=== PATIENT | female | born 1945 | race Caucasian/White ===

== ENCOUNTER 2021-10-28 16:44 | Outpatient (CLI) | payer MEDICARE, BC, SELFPAY ==
[2021-10-28 10:18] LABS: Chloride* 101 mmol/L (96-114); Potassium* 4.6 mmol/L (3.6-5.1); Sodium* 136 mmol/L (135-149)
[2021-10-28 10:20] LABS: Cholesterol* 191 mg/dL (90-199); Creatinine* 1.1 mg/dL (0.5-1.5); Estimated Glomerular Filt Rate 53 ml/min
[2021-10-28 10:21] LABS: Alanine Aminotransferase* 25 U/L (4-35); Alkaline Phosphatase* 49 U/L (40-150); Aspartate Amino Transferase* 32 U/L (12-35); Bilirubin Total* 0.7 mg/dL (0.1-1.5); Blood Urea Nitrogen* 21 mg/dL (7-30); Calcium* 9.1 mg/dL (8.4-10.6); Carbon Dioxide* 30 mmol/L (20-32); Glucose* 97 mg/dL (60-115); Total Protein* 6.7 g/dL (6.0-8.3); Triglycerides* 127 mg/dL (40-149)
[2021-10-28 10:22] LABS: HDL Cholesterol* 53 mg/dL (>=50); LDL Cholesterol Calculated 113 mg/dL (<100)
== END 2021-10-28 16:45 | disposition home or self-care (01) ==
PROVIDERS: PCP Family Medicine; Visit Provider Family Medicine
DX: E78.5 Hyperlipidemia, unspecified (principal)
CPT/HCPCS: 80053; 80061

== ENCOUNTER 2022-01-19 09:28 | Outpatient (CLI) | payer MEDICARE, BC, SELFPAY ==
--- OUTSIDE RECORDS SUMMARY | 2022-01-19 09:43 | XMS_ITS | Encounter Summary ---
:1945 Author Organization [employer] Address [address] [address] Care Team Providers Name Role Phone Unavailable Primary Care Provider Unavailable Reason for Referral Procedure/Equipment (Routine) - Closed Specialty Diagnoses / Procedures Referred By Contact Refer red To Contact Diagnoses Pleural thickening Pulmonary fibrosis (HRC) Mariam Butt MD Procedures CT Chest WO IV Cont [address] [place], [place] [address] Referral ID Status Reason Start Date Expiration Date Visits Requ ested Visits Authorized [id number] Closed 09/01/2021 12/11/2022 1 1 PUNCHER Reason for Visit Reason Comments Pulmonary Encounter Details Date Type Department Care Team Description 04/14/2021 Office Visit [facility] Mariam Butt, Pleural thickening (Primary Dx); [id number] [employer] Pulmonary fibrosis (HRC) [place] [address] [address] [facility] [phone] [place] [address] (Wo rk) Social History Tobacco Use Types Packs/Day Years Used Date Smoking Tobacco: Never Smokeless Tobacco: Never Alcohol Use Standard Drinks/Week Comments Not Currently 0 (1 standard drink = 0.6 oz pure alcoho l) Sex Assigned at Date Recorded Not on file documented as of this encounter Last Filed Vital Signs Vital Sign Reading Time Taken Comments Blood Pressure - - Pulse 70 04/14/2021 3:28 PM BELT PUNCHER Temperature - - Respiratory Rate - - Oxygen Saturation 94% 04/14/2021 3:28 PM BELT PUNCHER Inhaled Oxygen Concentration - - Weight 66 kg (145 lb 8 oz) 04/14/2021 3:28 PM BELT PUNCHER Height 160 cm (5' 3) 04/14/2021 3:28 PM BELT PUNCHER Body Mass Index 25.77 04/14/2021 3:28 PM BELT PUNCHER documented in this encounter Progress Notes Mariam Butt MD - 04/14/2021 3:30 PM CST Ingrid Osorio is a 75 y.o. female here today for follow up of bilateral apical reticulonodular opacities with superimposed consolidation SUBJECTIVE: I last met with Ms. Osorio one month ago where we discussed that her apical changes are atypical, and we elected to repeat a CT with follow up this month, as it would be 3 months from the original CT. Repeat CT today demonstrates essentially no change in the bilateral apical pleural thickening and peripheral infiltrate. She also brought in her MRI images which initially demonstrated these findings. These are similar as well. She remains asymptomatic, and her cough has resolved in the interim. OBJECTIVE: There were no vitals filed for this visit. General: Alert, oriented x 3, NAD Lungs: ctab Cardiac: RRR, without MRG appreciated Abd: soft, nt, nd. Normoactive bowel sounds. No appreciable organomegaly Ext: without cyanosis, clubbing, or edema Mental: answering questions appropriately RESULTS: I have personally reviewed the CT chest results. Results as above. ASSESSMENT: 1) Bilateral apical reticulonodular opacities and pleural thickening, probably ILD 2) Significant down exposure I had the pleasure of meeting with Mrs. Osorio in clinic again today. Repeat CT demonstrates no significant change in her pulmonary abnormalities. At this point I think it is reasonable to consider this as a manifestation of ILD and further workup is indicated. We will do a rheumatologic and autoimmune panel, as well as a hypersensitivity pneumonitis panel. Given the apical nature of these, I have also ordered quantiferon. We may need to remove the down from her home. There is one nodule that has grown from 5mm to 7mm in the 3 month span. This is likely inflammatory in nature. We will repeat a CT in 3-6 months with follow up at that time. If symptoms worsen, or if labs demonstrate significant abnormality we can see her back sooner. PLAN: 1) ILD labs 2) Follow up with repeat CT in 3-6 months Total time: 30 minutes; Counseling time: 20 minutes Mariam Butt MD 04/14/2021 Mariam Butt MD Pulmonary Medicine [phone] This office note has been dictated. PUNCHER documented in this encounter Plan of Treatment Upcoming Encounters Date Type Specialty Care Team Description 03/26/2022 Appointment Radiology PN Mariam Butt MD [address] [address] (Wo rk) 03/26/2022 Appointment Pulmonary 03/26/2022 Appointment Pulmonary Mariam Butt MD [address] [address] (Wo rk) documented as of this encounter Results CT Chest WO IV Cont (09/01/2021 12:28 PM CDT) Anatomical Region Laterality Modality Chest, Lung Computed Tomography Specimen (Source) Anatomical Collection Method Collection Time Re ceived Time Location / / Volume Laterality 09/01/2021 12:25 PM CDT Impressions 09/01/2021 1:30 PM CDT COMPARISON: CT 04/14/2021, 01/06/2021 TECHNIQUE: Noncontrast images were obtai saurabh through the chest. FINDINGS: Bones: Degenerative changes in the spine . Chronic mild T5 and T10 superior endplate compression fractures and a moderate compression fracture of the T8 vertebral body. Upper abdomen: Limited evaluation is unr emarkable. CHEST: Unremarkable esophagus. Partially visualized thyroid. No bulky chest lymphadenopathy. Heart and great vessels are normal in size. Trace right anterior pericardial fluid. No significant coronary artery calcifications. Patent central airways. No pneumothorax, pleural effusion, or new consolidation. Stable interstitial lung disease without an apical basal gradient. Stable small areas of peripheral consolidation in the posterior upper lobes and superior right lower lobe. No traction bronchiectasis or honeycombing. Stable 5 mm solid right lower lobe pulmonary nodule (series 3 image 38) and 2 mm solid right lower lobe p ulmonary nodule (series 3 image 45). Sta ble 8 x 5 mm probable lymph node along the right major fissure (coronal image 28). No new suspicious pulmonary nodule. IMPRESSION: 1. Interstitial lung disease in a patter n indeterminate for UIP has not significantly changed from 01/06/2021. 2. Stable 5 mm solid right lower lobe pu lmonary nodule and 2 mm solid right lower lobe pulmonary nodule. Procedure Note Hayder Lr MD - 09/01/2021Formatti ng of this note might be different from the original. IMPRESSION COMPARISON: CT 04/14/2021, 01/06/2021 TECHNIQUE: Noncontrast images were obtai saurabh through the chest. FINDINGS: Bones: Degenerative changes in the spine . Chronic mild T5 and T10 superior endplate compression fractures and a moderate compression fracture of the T8 vertebral body. Upper abdomen: Limited evaluation is unr emarkable. CHEST: Unremarkable esophagus. Partially visualized thyroid. No bulky chest lymphadenopathy. Heart and great vessels are normal in size. Trace right anterior pericardial fluid. No significant coronary artery calcifications. Patent central airways. No pneumothorax, pleural effusion, or new consolidation. Stable interstitial lung disease without an apical basal gradient. Stable small areas of peripheral consolidation in the posterior upper lobes and superior right lower lob e. No traction bronchiectasis or honeycombing. Stable 5 mm solid right lower lobe pulmonary nodule (series 3 image 38) and 2 mm solid right lower lobe pulmonary nodule (series 3 image 45). Stable 8 x 5 mm probable lymp h node along the right major fissure (coronal image 28). No new suspicious pulmonary nodule. IMPRESSION: 1. Interstitial lung disease in a patter n indeterminate for UIP has not significantly changed from 01/06/2021. 2. Stable 5 mm solid right lower lobe pu lmonary nodule and 2 mm solid right lower lobe pulmonary nodule. Mariam Butt MD RAD CT MPO/WI-3 (ANCA) Antibodies (04/14/2021 4:29 PM BELT PUNCHER) [facility] Time Signature Myeloperoxidase <0.3 <3.5 U/ml 04/16/2021 [facility] Antibody Units 11:08 AM [facility]AL [facility] BELT PUNCHER Myeloperoxidase Negative Negative 04/16/2021 [facility] Antibody 11:08 AM [facility] Interpretation BELT PUNCHER Proteinase 3 <0.7 <2.0 U/ml 04/16/2021 [facility] Antibody Units 11:08 AM [facility]TRAL [facility] BELT PUNCHER Proteinase 3 Negative Negative 04/16/2021 [facility] Interpretation 11:08 AM [facility]ENTRAL LAB BELT PUNCHER Specimen Anatomical Collection Method / Collection Time Recei madelin Time (Source) Location / Volume Laterality Blood Venipuncture / 04/14/2021 4:29 04/14/2021 4:30 Unknown PM BELT PUNCHER PM BELT PUNCHER Mariam Butt MD LAB_1 Performing Organization Address City/State/ZIP Code Phon e Number [facility] [address] [place] [phone] Hypersensitivity Pneumonitis (04/14/2021 4:29 PM BELT PUNCHER) [facility] Method Time Signature A Fumigatus #1 None None 04/19/2021 [facility] Detected Detected 8:53 PM [facility] Comment: Performed By: [facility] [address] [place] [address] A Fumigatus #6 None Detected None Detected 04/19/2021 8:53 A [facility] Precipitin PM BELT PUNCHER Comment: Performed By: [facility] [address] [place] [address] A Pullulans None Detected None Detected 04/19/2021 8:53 [facility] Precipitin PM BELT PUNCHER Comment: Performed By: [facility] [address] [place] [address] M Faeni Precipitin None Detected None Detected 04/19/2021 8:53 [facility] PM BELT PUNCHER Comment: Performed By: [facility] [address] [place] [address] [place] Serum None Detected None Detected 04/19/2021 8:53 [facility] Precipitin PM BELT PUNCHER Comment: Performed By: [facility] [address] [place] [address] T Vulgaris #1 See Note None Detected 04/19/2021 8:53 PM [facility] Precipitin BELT PUNCHER Comment: Testing includes antibodies directed at Aureobasidium pullulans, Aspergillus fumigatus #1, Aspergillus fu migatus #6, Micropolyspora faeni, [place] Serum and Thermoactinomyce s vulgaris #1. Thermoactinomyces vulgaris #1 testing no t performed due to unsatisfactory reagent performance. A cr edit will be issued for this component. Performed By: [email or web address] [address] [place] [address] Specimen Anatomical Collection Method / Collection Time Recei madelin Time (Source) Location / Volume Laterality Blood Venipuncture / 04/14/2021 4:29 04/14/2021 4:30 Unknown PM BELT PUNCHER PM BELT PUNCHER Mariam Butt MD LAB_1 Performing Organization Address City/State/ZIP Code Phon e Number [facility] [address] [place] [phone] Systemic Sclerosis Panel (04/14/2021 4:29 PM BELT PUNCHER) Analysis Performed At [facility] Time Signature RNA Polymerase 4 0 - 19 04/17/2021 [facility] III Antibody, Units 5:26 AM [facility] IgG Comment: INTERPRETIVE INFORMATION: RNA Polymerase III Antibody, IgG ??19 Units or less ......Negative ??20 - 39 Units .........Weak Positive ??40 - 80 Units .........Moderate Posit tali ??81 Units or greater ...Strong Positiv e The presence of RNA polymerase III IgG a ntibody, when considered in conjunction with other laboratory and clinical findings, is an aid in the diagnosis of systemic scleros is (SSc) with increased incidence of skin involvement and renal crisis with the diffuse cutaneous form of SSc. RNA polymerase II I IgG antibody occur in about 11-23 percent of SSc patients, and typically in the absence of anti-centromere and anti-Scl-70 antib odies. A negative result indicates no detectabl e IgG antibodies to the dominant antigen of RNA polymerase III a nd does not rule out the possibility of SSc. False-positive resul ts may also occur due to non-specific binding of immune complexes . Strong clinical correlation is recommended. If clinical suspicion remains, consider additional testing for other antibodies associated with SSc, in cluding centromere, Scl-70, U3-ANODE MACHINE OPERATOR, PM/Scl, or Th/To. Performed By: [facility] [address] [place] [address] Stock Preparation Operator: Sharon Gomez MD Scleroderma (Scl-70) Ab 1 0 - 40 AU/mL 04/17/2021 5:26 AM BELT PUNCHER [facility] Comment: INTERPRETIVE INFORMATION: Scleroderma (S cl-70) (TONY) Ab, IgG ??29 AU/mL or Less ............. Negati ve ??30 - 40 AU/mL ................ Equivo michael ??41 AU/mL or Greater .......... Positi ve The presence of Scl-70 antibodies (also referred to as topoisomerase I, miranda-I or DAVID) is consi dered diagnostic for systemic sclerosis (SSc). Scl-70 antibod ies alone are detected in about 20 percent of SSc patients and are associated with the diffuse form of the disease, which may i nclude specific organ involvement and poor prognosis. Scl-70 a ntibodies have also been reported in a varying percentage of margret ents with systemic lupus erythematosus (SLE). Scl-70 (miranda-1) is a DNA binding protein and anti-DNA/DNA complexes in the sera of SL E patients may bind to miranda-I, leading to a false-positive resu lt. The presence of Scl-70 antibody in sera may also be due to cont amination of recombinant Scl-70 with DNA derived from cellular ma terial used in immunoassays. Strong clinical correlatio n is recommended if both Scl-70 and dsDNA antibodies are detected . Negative results do not necessarily rule out the presence of SSc. If clinical suspicion remains, consider further testing for centromere, RNA polymerase III and U3-RN P, PM/Scl, or Th/To antibodies. Antinuclear Antibody <1:80 <1:80 04/17/2021 5:26 AM BELT PUNCHER [facility] (BEAU), HEp-2, IgG [facility] Interpretive Comment See Note 04/17/2021 5:26 AM BELT PUNCHER [facility] Comment: Antinuclear antibodies by IFA negative f or homogeneous, speckled, nucleolar, centromere, and nuclear dots patterns. Cytoplasmic antibodies by IFA negative f or reticular/AMA, discrete/GW body-like, polar/golgi-like, rods and rings, and cytoplasmic speckled patterns. INTERPRETIVE INFORMATION: [facility]AU Interpreti ve Comment Presence of antinuclear antibodies (BEAU) is a hallmark feature of systemic autoimmune rheumatic diseases ( SARD). However, BEAU lacks diagnostic specificity and is associated with a variety of diseases (cancers, autoimmune, infectiou s, and inflammatory conditions) ??and may also occur in heal thy individuals in varying prevalence. The lack of diagnostic speci ficity requires confirmation of positive BEAU by more spe cific serologic tests. BEAU (nuclear reactivity) positive patterns r eported include centromere, homogeneous, nuclear dots, n ucleolar, or speckled. BEAU (cytoplasmic reactivity) positive patter ns reported include reticular/AMA, discrete/GW body-like, po lar/golgi-like, cytoplasmic speckled or rods and rings. All positive patterns are reported to endpoint titers (1:2560). Re ported patterns may help guide differential diagnosis, although t hey may not be specific for individual antibodies or diseases. M itotic staining patterns not reported. ??Negative results do not necessarily rule out SARD. Specimen Anatomical Collection Method / Collection Time Recei madelin Time (Source) Location / Volume Laterality Blood Venipuncture / 04/14/2021 4:29 04/14/2021 4:30 Unknown PM BELT PUNCHER PM BELT PUNCHER Mariam Butt MD LAB_1 Performing Organization Address City/State/ZIP Code Phon e Number [facility] [address] [phone] Polymyositis Panel (04/14/2021 4:29 PM BELT PUNCHER) [facility] Time Signature TEST RESULT: SEE NOTE 04/21/2021 [facility] 6:49 PM [facility] Comment: Test name ? Result Flag Units ??RefIntvl ?? Bernie-1 (Histidyl-tRNA Synthetase) Ab, IgG ? 0 ? AU/mL 0-40 ? INTERPRETIVE INFORMATION: ??Bernie-1 Antibod y, IgG ??29 AU/mL or less.........Negative ??30-40 AU/mL..............Equivocal ??41 AU/mL or greater......Positive Presence of Bernie-1 (antihistidyl transfer RNA [t-RNA] synthetase) antibody is associated with polymyositis and may also be seen in patients with dermatomyositis. Bernie-1 anti body is associated with pulmonary involvement (interstitial lung disease), Raynaud phenomenon, arthritis, and auto mechanics instructor's hill nds (implicated in antisynthetase syndrome). PL-12 (alanyl-tRNA synthetase) Antibody ?Negative ? Negative ?? PL-7 (threonyl-tRNA synthetase) Antibody ?Negative ? Negative ?? OJ (isoleucyl-tRNA synthetase) Antibody ?Negative ? Negative ?? EJ (glycyl-tRNA synthetase) Antibody ?Negative ? Negative ?? SRP (Signal Recognition Particle) Ab ?Negative ? Negative ?? Polymyositis Interpretive Information ?See Note ? INTERPRETIVE INFORMATION: Polymyositis P luis If present, myositis-specific antibodies (MSA) are specific for myositis, and may be useful in establish ing diagnosis as well as prognosis. MSAs are generally regarded a s mutually exclusive with rare exceptions; the occurrence of two o r more MSAs should be carefully evaluated in the context of denisse hernandez's clinical presentation. Myositis-associated antibo dies (MAA) may be found in patients with CTD including overlap synd romes, and are generally not specific for myositis. The following table will help in identifying the association of any antib odies found as either MSAs or Chelly. Antibody Specificity . . . . . . . . . . . . MSA . . . . MAA Bernie-1 (histidyl-tRNA synthetase) Ab, IgG ??. . ??X PL-12 (alanyl-tRNA synthetase) Antibody ??. . ??X PL-7 (threonyl-tRNA synthetase) Antibody . . ??X EJ (glycyl-tRNA synthetase) Antibody . . . . ??X OJ (isoleucyl-tRNA synthetase) Antibody ??. . ??X SRP (Signal Recognition Particle) Ab . . . . ??X This test was developed and its performa nce characteristics determined by [facility]. It has not been cleared or approved by the [place] Food and Drug Adminis tration. This test was performed in a CLIA certified laboratory and is intended for clinical purposes. Performed by [facility], [address] [place] [id number] [email or web address], Sharon Gomez MD, La b. Director Specimen Anatomical Collection Method / Collection Time Recei madelin Time (Source) Location / Volume Laterality Blood Venipuncture / 04/14/2021 4:29 04/14/2021 4:30 Unknown PM BELT PUNCHER PM BELT PUNCHER Mariam Butt MD LAB_1 Performing Organization Address [facility]/ZIP [facility] Phon e Number [facility] [address] [place], [place] [phone] Rheumatoid Factor (04/14/2021 4:29 PM BELT PUNCHER) Analysis Performed At [facility] Time Signature Rheumatoid <15 <=30 IU/mL 04/14/2021 [facility], 9:02 PM [facility] Quantitative Specimen Anatomical Collection Method / Collection Time Recei madelin Time (Source) Location / Volume Laterality Blood Venipuncture / 04/14/2021 4:29 04/14/2021 4:30 Unknown PM BELT PUNCHER PM BELT PUNCHER Mariam Butt MD LAB_1 Performing Organization Address City/[facility]/ZIP [facility] Phon e Number [facility] [address] [place] [address] DNA Double Stranded Antibody IgG (JEANE) (04/14/2021 4:29 PM BELT PUNCHER) [facility] Time Signature Anti-DNA Antibody 65 <200 IU 04/17/2021 [facility] IgG 1:26 PM [facility] Anti-DNA Antibody Negative Negative 04/17/2021 [facility] IgG Interpretation 1:26 PM BELT P[facility]ER LABORATOR Y Specimen Anatomical Collection Method / Collection Time Recei madelin Time (Source) Location / Volume Laterality Blood Venipuncture / 04/14/2021 4:29 04/14/2021 4:30 Unknown PM BELT PUNCHER PM BELT PUNCHER Narrative [facility] - 04/17/2021 1:26 P M BELT PUNCHER The following results were obtained with the [employer] QUANTA Lite dsDNA JEANE. dsDNA values obtained with different manufactu rers' assay methods may not be used interchangeably. Mariam Butt MD LAB_1 Performing Organization Address City/[facility]/ZIP Code Phon e Number [facility] [address] [place] [address] Anti-CCP Antibody (04/14/2021 4:29 PM BELT PUNCHER) [facility] Time Signature Anti-CCP Antibody 3 <7 U/mL 04/16/2021 [facility] 11:40 AM [facility] BELT PUNCHER Anti-CCP Antibody Negative Negative 04/16/2021 [facility] Interpretation 11:40 AM [facility]TRAL LAB BELT PUNCHER Specimen Anatomical Collection Method / Collection Time Recei madelin Time (Source) Location / Volume Laterality Blood Venipuncture / 04/14/2021 4:29 04/14/2021 4:30 Unknown PM BELT PUNCHER PM BELT PUNCHER Mariam Butt MD LAB_1 Performing Organization Address City/[facility]/ZIP [facility] Phon e Number [facility] [address] [address] Extractable Nuclear Antigen Antibodies (04/14/2021 4:29 PM BELT PUNCHER) athologist Signature MARTINEZ/ANODE MACHINE OPERATOR 4 0 - 19 04/16/2021 [facility] (TONY) Ab, IGG Units 1:06 PM [facility] Comment: INTERPRETIVE INFORMATION: Martinez/ANODE MACHINE OPERATOR (TONY ) Antibody, IgG ??19 Units or Less ............. Negati ve ??20 to 39 Units ............... Weak P ositive ??40 to 80 Units ............... Modera te Positive ??81 Units or greater .......... Strong Positive Martinez/ANODE MACHINE OPERATOR antibodies are frequently seen in patients with mixed connective tissue disease (MCTD) and are also associated with other systemic autoimmune rheumatic dise ases (SARDs) such as systemic lupus erythematosus (SLE), syst emic sclerosis, and myositis. Antibodies targeting the Martinez /ANODE MACHINE OPERATOR antigenic complex also recognize Martinez antigens, therefore , the Martinez antibody response must be considered when interpr eting these results. Performed By: [facility] [address] [place] [address] Stock Preparation Operator: Sharon Gomez MD TONY To Martinez (Sm) 0 0 - 40 AU/mL 04/16/2021 1:06 PM BELT PUNCHER [facility] Antibody Comment: INTERPRETIVE INFORMATION: Martinez (TONY) An tibody, IgG ??29 AU/mL or Less ............. Negati ve ??30 - 40 AU/mL ................ Equivo michael ??41 AU/mL or Greater .......... Positi ve Martinez antibody is highly specific (great er than 90 percent) for systemic lupus erythematosus (SLE) but o nly occurs in 30-35 percent of SLE cases. The presence of an tibodies to Martinez has variable associations with SLE clinical manifestations. SSA -52 (RO52) ANTIBODY, 0 0 - 40 AU/mL 2 1:06 PM BELT PUNCHER [facility] IGG (TONY) Comment: INTERPRETIVE INFORMATION: SSA-52 (Ro52) (TONY) Antibody, IgG ??29 AU/mL or Less ............. Negati ve ??30 - 40 AU/mL ................ Equivo michael ??41 AU/mL or Greater .......... Positi ve SSA-52 (Ro52) and/or SSA-60 (Ro60) antib odies are associated with a diagnosis of Sjogren syndrome, systemi c lupus erythematosus (SLE), and systemic sclerosis. SSA-52 an tibody overlaps significantly with the major SSc-related antibodies. SSA-52 (Ro52) antibody occurs frequently in patients w ith inflammatory myopathies, often in the presence of int erstitial lung disease. SSB (La) Antibody, IgG 1 0 - 40 AU/mL 04/16/2021 1:0 6 PM BELT PUNCHER [facility] (TONY) Comment: INTERPRETIVE INFORMATION: SSB (La) (TONY) Ab, IgG ??29 AU/mL or Less ............. Negati ve ??30 - 40 AU/mL ................ Equivo michael ??41 AU/mL or Greater .......... Positi ve SSB (La) antibody is seen in 50-60% of S jogren syndrome cases and is specific if it is the only TONY antibo dy present. 15-25% of patients with systemic lupus erythematos us (SLE) and 5-10% of patients with progressive systemic scler osis (PSS) also have this antibody. SSA-60 (RO60) ANTIBODY, 0 0 - 40 AU/mL 04/16/2021 1:06 PM BELT PUNCHER [facility] IGG (TONY) Comment: REFERENCE INTERVAL: SSA-60 (Ro60) (TONY) Antibody, IgG ??29 AU/mL or Less ............. Negati ve ??30 - 40 AU/mL ................ Equivo michael ??41 AU/mL or Greater .......... Positi ve Specimen Anatomical Collection Method / Collection Time Recei madelin Time (Source) Location / Volume Laterality Blood Venipuncture / 04/14/2021 4:29 04/14/2021 4:30 Unknown PM BELT PUNCHER PM BELT PUNCHER Mariam Butt MD LAB_1 Performing Organization Address City/State/ZIP Code Phon e Number [facility] [address], [place] [address] [phone] Anti-Nuclear Antibody Titer by Immunofluorescent Antibody (IFA) and Pattern (04/14/2021 4:29 PM BELT PUNCHER) [facility] Time Signature [facility] Interpretation Negative Negative 04/15/2021 [facility] 10:00 AM LABORATORY BELT PUNCHER Specimen Anatomical Collection Method / Collection Time Recei madelin Time (Source) Location / Volume Laterality Blood Venipuncture / 04/14/2021 4:29 04/14/2021 4:30 Unknown PM BELT PUNCHER PM BELT PUNCHER Mariam Butt MD LAB_1 Performing Organization Address City/State/ZIP Code Phon e Number [facility] [address] [place] [address] documented in this encounter Visit Diagnoses Diagnosis Pleural thickening - Primary Pleurisy without mention of effusion or current tuberculosis Pulmonary fibrosis (HRC) Postinflammatory pulmonary fibrosis Pleural thickening Pleurisy without mention of effusion or current tuberculosis 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
--- OUTSIDE RECORDS SUMMARY | 2022-01-19 09:43 | XMS_ITS | Encounter Summary ---
:1945 Author Organization [facility] Address [address], [place] [address] Care Team Providers Name Role Phone Unavailable Primary Care Provider Unavailable Reason for Visit Procedure/Equipment (Routine) - Incomplete Specialty Diagnoses / Procedures Referred By Contact Refer red To Contact Diagnoses Reticulonodular infiltrate present on imaging of chest Mariam Butt MD Procedures CT Chest WO IV Cont Hi-Res [address] [place], [place] [address] Referral ID Status Reason Start Date Expiration Date Visits V isits Requested Authorized [id number] Incomplete 03/24/2021 06/23/2022 1 1 Encounter Details Date Type Department Care Team Description 04/14/2021 [facility] [place] Mariam Butt, Reticulon odular Procedure [place] [address] Scan [address] [place] imaging of chest [address] [place] [phone] Social History Tobacco Use Types Packs/Day Years Used Date Smoking Tobacco: Never Smokeless Tobacco: Never Alcohol Use Standard Drinks/Week Comments Not Currently 0 (1 standard drink = 0.6 oz pure alcoho l) Sex Assigned at Date Recorded Not on file documented as of this encounter Plan of Treatment Upcoming Encounters Date Type Specialty Care Team Description 03/26/2022 Appointment Radiology PN Mariam Butt MD [address] [facility] [place] N [phone] (Wo rk) 03/26/2022 Appointment Pulmonary 03/26/2022 Appointment Pulmonary Mariam Butt MD [address] [facility] [place] N [id number] (Wo rk) documented as of this encounter Procedures Procedure Name Priority Date/Time Associated Diagnosis Comme nts CT CHEST WO IV Routine 04/14/2021 1:06 PM Reticulonodular Resu lts for this CONT HI-RES TAXI SERVICER infiltrate present on proced ure are in imaging of chest the results section. documented in this encounter Results CT Chest WO IV Cont Hi-Res (04/14/2021 1:06 PM TAXI SERVICER) Anatomical Region Laterality Modality Chest, Lung Computed Tomography Specimen (Source) Anatomical Collection Method Collection Time Re ceived Time Location / / Volume Laterality 04/14/2021 12:52 PM TAXI SERVICER Impressions 04/14/2021 2:53 PM TAXI SERVICER COMPARISON: ??01/06/2021 TECHNIQUE: ??High-resolution images of t he chest with thin section inspiration, expiration, and prone images without contrast. FINDINGS: CHEST WALL AND LOWER NECK: Unremarkable. LYMPHADENOPATHY: No mediastinal, hilar o r axillary adenopathy. CARDIOMEDIASTINUM: Unremarkable. VISUALIZED UPPER ABDOMEN: Unremarkable. PLEURA/ PLEURAL EFFUSION: Unremarkable. No pleural effusion. BONES: Moderate compression fracture mid thoracic spine unchanged. LUNG AND LARGE AIRWAYS: Bilateral apical pleural thickening areas and areas of peripheral infiltrate are unchanged. Slight interval increase in size in the peripheral nodule seen along the right major f issure image 38 series 5 now measuring 7 mm and previously measuring less than 5 mm. 6 mm pulmonary nodule right lower lobe image 40 series 5 unchanged. Areas of subpleural interstitial thickening are a gain seen. No appreciable honeycombing. Some peripheral bronchiectasis in the upper lobes again seen. Prone imaging demonstrates no air trapping. IMPRESSION: 1. Bilateral apical pleural thickening a nd peripheral area of infiltrates unchanged. 2. Right pulmonary nodule along the ca r fissure has increased from 5 to 7 mm. Procedure Note Nicolas Irizarry MD - 04/14/2021Forma tting of this note might be different from the original. IMPRESSION COMPARISON: 01/06/2021 TECHNIQUE: High-resolution images of the chest with thin section inspiration, expiration, and prone images without contrast. FINDINGS: CHEST WALL AND LOWER NECK: Unremarkable. LYMPHADENOPATHY: No mediastinal, hilar o r axillary adenopathy. CARDIOMEDIASTINUM: Unremarkable. VISUALIZED UPPER ABDOMEN: Unremarkable. PLEURA/ PLEURAL EFFUSION: Unremarkable. No pleural effusion. BONES: Moderate compression fracture mid thoracic spine unchanged. LUNG AND LARGE AIRWAYS: Bilateral apical pleural thickening areas and areas of peripheral infiltrate are unchanged. Slight interval increase in size in the peripheral nodule seen along the right major fissure image 38 series 5 now measuring 7 mm and previous ly measuring less than 5 mm. 6 mm pulmonary nodule right lower lobe image 40 series 5 unchanged. Areas of subpleural interstitial thickening are again seen. No appreciable honeycombing. Some peripheral bronchiect asis in the upper lobes again seen. Prone imaging demonstrates no air trapping. IMPRESSION: 1. Bilateral apical pleural thickening a nd peripheral area of infiltrates unchanged. 2. Right pulmonary nodule along the ca r fissure has increased from 5 to 7 mm. Mariam Butt MD RAD CT documented in this encounter Visit Diagnoses Diagnosis Reticulonodular infiltrate present on im aging of chest documented in this encounter
--- OUTSIDE RECORDS SUMMARY | 2022-01-19 09:43 | XMS_ITS | Encounter Summary ---
:1945 Author Organization [employer] Address [address] [place] [address] Care Team Providers Name Role Phone Unavailable Primary Care Provider Unavailable Encounter Details Date Type Department Care Team Description 04/14/2021 Lab Visit [facility] Pleural thickening; [address] [facility] Pulmonary fibrosis (HRC) [place] [address] Social History Tobacco Use Types Packs/Day Years [...] Appointment Radiology PN Mariam Butt MD [address] [facility] [address] (Wo rk) 03/26/2022 Appointment Pulmonary 03/26/2022 Appointment Pulmonary Mariam Butt MD [address] [facility] [address] (Wo rk) documented as of this encounter Procedures Procedure Name Priority Date/Time Associated Comments Diagnosis EXTRACTABLE NUCLEAR Routine 04/14/2021 4:29 Pleural thic kening Results for this ANTIGEN ANTIBODIES PM COLLAR CUTTER Pulmonary fibrosis pro cedure are in (HR) the results section. SYSTEMIC SCLEROSIS PANEL Routine 04/14/2021 4:29 Pleural thickening Results for this PM COLLAR CUTTER Pulmonary fibrosis procedure are in (HR) the results section. MISCELLANEOUS LAB TEST Routine 04/14/2021 4:29 Pleural t hickening Results for this PM COLLAR CUTTER Pulmonary fibrosis procedure are in (HR) the results section. HYPERSENSITIVITY Routine 04/14/2021 4:29 Pleural thicken ing Results for this PNEUMONITIS PM COLLAR CUTTER Pulmonary fibrosis procedure are in (HRC) the results section. TB QUANTIFERON GOLD PLUS Routine 04/14/2021 4:29 Pleural thickening Results for this PM COLLAR CUTTER Pulmonary fibrosis procedure are in (HRC) the results section. TB QUANTIFERON GOLD PLUS Routine 04/14/2021 4:29 Pleural thickening Results for this MITOGEN PM COLLAR CUTTER Pulmonary fibrosis procedure are in (HRC) the results section. TB QUANTIFERON GOLD PLUS Routine 04/14/2021 4:29 Pleural thickening Results for this TB2 PM COLLAR CUTTER Pulmonary fibrosis procedure are in (HRC) the results section. TB QUANTIFERON GOLD PLUS Routine 04/14/2021 4:29 Pleural thickening Results for this TB1 PM COLLAR CUTTER Pulmonary fibrosis procedure are in (HRC) the results section. TB QUANTIFERON GOLD PLUS Routine 04/14/2021 4:29 Pleural thickening Results for this NIL PM COLLAR CUTTER Pulmonary fibrosis procedure are in (HRC) the results section. MPO/MS-3 (ANCA) Routine 04/14/2021 4:29 Pleural thickeni ng Results for this ANTIBODIES PM COLLAR CUTTER Pulmonary fibrosis procedure are in (HRC) the results section. DNA DOUBLE STRANDED Routine 04/14/2021 4:29 Pleural thic kening Results for this ANTIBODY IGG (JEANE) PM COLLAR CUTTER Pulmonary fibrosis p rocedure are in (HRC) the results section. ANTI-CCP AB Routine 04/14/2021 4:29 Pleural thickeni ng Results for this PM COLLAR CUTTER Pulmonary fibrosis procedure are in (HRC) the results section. RHEUMATOID FACTOR, QUANT Routine 04/14/2021 4:29 Pleural thickening Results for this PM COLLAR CUTTER Pulmonary fibrosis procedure are in (HRC) the results section. BEAU, QUANT (TITER) Routine 04/14/2021 4:29 Pleural thick ening Results for this PM COLLAR CUTTER Pulmonary fibrosis procedure are in (HRC) the results section. documented in this encounter Results TB QuantiFERON Gold Plus Mitogen (04/14/2021 4:29 PM COLLAR CUTTER) P athologist Signature MITOGEN >10.000 IU/mL 04/16/2021 [facility] 11:25 AM [facility] Specimen Anatomical Collection Method / Collection Time Recei madelin Time (Source) Location / Volume Laterality Blood Venipuncture / 04/14/2021 4:29 04/14/2021 4:30 Unknown PM COLLAR CUTTER PM COLLAR CUTTER Mariam J Daquan MD LAB_1 Performing Organization Address [facility] Phon e Number [facility] [address] [place] [address] TB QuantiFERON Gold Plus TB2 (04/14/2021 4:29 PM COLLAR CUTTER) P athologist Signature TB2 0.020 IU/mL 04/16/2021 [facility] 11:25 AM [facility] Specimen Anatomical Collection Method / Collection Time Recei madelin Time (Source) Location / Volume Laterality Blood Venipuncture / 04/14/2021 4:29 04/14/2021 4:30 Unknown PM COLLAR CUTTER PM COLLAR CUTTER Mariam Butt MD LAB_1 Performing Organization Address [facility] Phon e Number [facility] [address] [place] [address] TB QuantiFERON Gold Plus TB1 (04/14/2021 4:29 PM COLLAR CUTTER) athologist Signature TB1 0.029 IU/mL 04/16/2021 [facility] 11:30 AM [facility] Specimen Anatomical Collection Method / Collection Time Recei madelin Time (Source) Location / Volume Laterality Blood Venipuncture / 04/14/2021 4:29 04/14/2021 4:30 Unknown PM COLLAR CUTTER PM COLLAR CUTTER Mariam Butt MD LAB_1 Performing Organization Address [facility] Phon e Number [facility] [address] [place] [address] TB QuantiFERON Gold Plus NIL (04/14/2021 4:29 PM COLLAR CUTTER) [facility] Method Time Signature TB QuantiFERON Negative, M. Negative, M. 04/16/2021 [facility] T Gold Plus tuberculosis tuberculosis 11:30 AM LABORATORY Infection NOT Infection NOT COLLAR CUTTER likely likely NIL 0.017 IU/mL 04/16/2021 [facility] 11:30 AM LABORATORY COLLAR CUTTER TB1-NIL 0.01 IU/mL 04/16/2021 [facility] 11:30 AM LABORATORY COLLAR CUTTER TB2-NIL 0.00 IU/mL 04/16/2021 [facility] 11:30 AM LABORATORY COLLAR CUTTER Mitogen-NIL 9.98 IU/mL 04/16/2021 [facility] 11:30 AM LABORATORY COLLAR CUTTER Specimen Anatomical Collection Method / Collection Time Recei madelin Time (Source) Location / Volume Laterality Blood Venipuncture / 04/14/2021 4:29 04/14/2021 4:30 Unknown PM COLLAR CUTTER PM COLLAR CUTTER [facility] - 04/16/2021 11:30 AM COLLAR CUTTER The results of the QuantiFERON TB Gold Plus should be correlated clinically. A single positive test in populations with a low prevalence of latent tuberculosis infection (low pretest probability), murtaza uld not be taken as definitive evidence of infection. Decisions regarding retesting should be made on a case by case basis. When TB1-NIL or TB2-NIL is low (<1 IU/mL ), repeat testing may alternate between positive and negative due to measurement imprecision and not necessarily a change in immune response. For more info rmation refer to: https://www.cdc.gov/mmwr/preview/mmwrhtm l/gg3180y7.htm. Mariam Butt MD LAB_1 Performing Organization Address City/[facility] Phon e Number [facility] [address] [place] [address] MPO/MS-3 (ANCA) Antibodies (04/14/2021 4:29 PM COLLAR CUTTER) [facility] gist Method Time Signature Myeloperoxidase <0.3 <3.5 U/ml 04/16/2021 [facility] Antibody Units 11:08 AM [facility]ENTRAL LAB COLLAR CUTTER Myeloperoxidase Negative Negative 04/16/2021 [facility] Antibody 11:08 AM [facility]AL LAB Interpretation COLLAR CUTTER Proteinase 3 <0.7 <2.0 U/ml 04/16/2021 [facility] Antibody Units 11:08 AM CENTRAL LAB COLLAR CUTTER Proteinase 3 Negative Negative 04/16/2021 [facility] Interpretation 11:08 AM [facility]TRAL LAB COLLAR CUTTER Specimen Anatomical Collection Method / Collection Time Recei madelin Time (Source) Location / Volume Laterality Blood Venipuncture / 04/14/2021 4:29 04/14/2021 4:30 Unknown PM COLLAR CUTTER PM COLLAR CUTTER Mariam Butt MD LAB_1 Performing Organization Address City/[facility] Phon e Number [facility] C[facility]AL LAB [address] [address] Hypersensitivity Pneumonitis (04/14/2021 4:29 PM COLLAR CUTTER) [facility] gist Method Time Signature A Fumigatus #1 None None 04/19/2021 [facility] Precipitin Detected Detected 8:53 PM [facility] Comment: Performed By: [address] [address] A Fumigatus #6 None Detected None Detected 04/19/2021 8:53 A [facility] Precipitin PM COLLAR CUTTER Comment: Performed By: [address] [address] A Pullulans None Detected None Detected 04/19/2021 8:53 [facility] Precipitin PM COLLAR CUTTER Comment: Performed By: [address] [address] M Faeni Precipitin None Detected None Detected 04/19/2021 8:53 [facility] PM COLLAR CUTTER Comment: Performed By: [address] [address] [place] Serum None Detected None Detected 04/19/2021 8:53 [facility] Precipitin PM COLLAR CUTTER Comment: Performed By: [address] [address] T Vulgaris #1 See Note None Detected 04/19/2021 8:53 PM [facility] Precipitin COLLAR CUTTER Comment: Testing includes antibodies directed at Aureobasidium pullulans, Aspergillus fumigatus #1, Aspergillus fu migatus #6, Micropolyspora faeni, [place] Serum and Thermoactinomyce s vulgaris #1. Thermoactinomyces vulgaris #1 testing no t performed due to unsatisfactory reagent performance. A cr edit will be issued for this component. Performed By: [address] [address] Specimen Anatomical Collection Method / Collection Time Recei madelin Time (Source) Location / Volume Laterality Blood Venipuncture / 04/14/2021 4:29 04/14/2021 4:30 Unknown PM COLLAR CUTTER PM COLLAR CUTTER Mariam Butt MD LAB_1 Performing Organization Address City/State/ZIP Code Phon e Number [address] [phone] Systemic Sclerosis Panel (04/14/2021 4:29 PM COLLAR CUTTER) Analysis Performed At [facility] logist Time Signature RNA Polymerase 4 0 - 19 04/17/2021 [facility] III Antibody, Units 5:26 AM [facility] IgG Comment: INTERPRETIVE INFORMATION: RNA Polymerase [...] associated with SSc, in cluding centromere, Scl-70, U3-APPRENTICE ELECTRICIAN, PM/Scl, or Th/To. Performed By: [facility] [address] [place] [address] Head Of Quality: Sharon Gomez MD Scleroderma (Scl-70) Ab 1 0 - 40 AU/mL 04/17/2021 5:26 AM COLLAR CUTTER [facility] Comment: INTERPRETIVE INFORMATION: Scleroderma (S cl-70) (TONY) [...] Antinuclear Antibody <1:80 <1:80 04/17/2021 5:26 AM COLLAR CUTTER [employer] (BEAU), HEp-2, IgG BEAU Interpretive Comment See Note 04/17/2021 5:26 AM COLLAR CUTTER [facility] Comment: Antinuclear antibodies by IFA negative f [...] / 04/14/2021 4:29 04/14/2021 4:30 Unknown PM COLLAR CUTTER PM COLLAR CUTTER Mariam Butt MD LAB_1 Performing Organization Address City/State/ZIP Code Chad Cassidy [facility] [address] [phone] Polymyositis Panel (04/14/2021 4:29 PM COLLAR CUTTER) [facility] Method Time Signature TEST RESULT: SEE NOTE 04/21/2021 [facility] 6:49 PM [facility] Comment: Test name ? Result Flag [...] (interstitial lung disease), Raynaud phenomenon, arthritis, and mechanical maintenance engineer's hill nds (implicated in antisynthetase syndrome). PL-12 [...] and its performa nce characteristics determined by [facility]. It has not been cleared or approved by the US Food and Drug Adminis tration. This test was performed in a CLIA certified laboratory and is intended for clinical purposes. Performed by [facility], [address] [place] [address] [email or web address], Sharon Gomez MD, [place] b. Director Specimen Anatomical Collection Method / Collection Time Recei madelin Time (Source) Location / Volume Laterality Blood Venipuncture / 04/14/2021 4:29 04/14/2021 4:30 Unknown PM COLLAR CUTTER PM COLLAR CUTTER Mariam Butt MD LAB_1 Performing Organization Address [facility] Phon e Number [facility] [address] [phone] Rheumatoid Factor (04/14/2021 4:29 PM COLLAR CUTTER) Analysis Performed At Patho logist Time Signature Rheumatoid <15 <=30 IU/mL 04/14/2021 [facility] Factor, 9:02 PM [facility] Quantitative Specimen Anatomical Collection Method / Collection Time Recei madelin Time (Source) Location / Volume Laterality Blood Venipuncture / 04/14/2021 4:29 04/14/2021 4:30 Unknown PM COLLAR CUTTER PM COLLAR CUTTER Mariam Butt MD LAB_1 Performing Organization Address City/[facility] Phon e Number [facility] [address] [place] [address] DNA Double Stranded Antibody IgG (JEANE) (04/14/2021 4:29 PM COLLAR CUTTER) Patholo gist Method Time Signature Anti-DNA Antibody 65 <200 IU 04/17/2021 [facility] IgG 1:26 PM [facility] Anti-DNA Antibody Negative Negative 04/17/2021 [facility] IgG Interpretation 1:26 PM COLLAR CUTTER LABORATOR Y Specimen Anatomical Collection Method / Collection Time Recei madelin Time (Source) Location / Volume Laterality Blood Venipuncture / 04/14/2021 4:29 04/14/2021 4:30 Unknown PM COLLAR CUTTER PM COLLAR CUTTER Narrative [facility] - 04/17/2021 1:26 P M COLLAR CUTTER The following results were obtained with the dELiAsva QUANTA Lite dsDNA JEANE. dsDNA values obtained with different manufactu rers' assay methods may not be used interchangeably. Mariam Butt MD LAB_1 Performing Organization Address City/State/ZIP Code Phon e Number [facility] [address] [place] [address] Anti-CCP Antibody (04/14/2021 4:29 PM COLLAR CUTTER) [facility] gist Method Time Signature Anti-CCP Antibody 3 <7 U/mL 04/16/2021 [facility] 11:40 AM [facility] COLLAR CUTTER Anti-CCP Antibody Negative Negative 04/16/2021 [facility] Interpretation 11:40 AM [facility]AL LAB COLLAR CUTTER Specimen Anatomical Collection Method / Collection Time Recei madelin Time (Source) Location / Volume Laterality Blood Venipuncture / 04/14/2021 4:29 04/14/2021 4:30 Unknown PM COLLAR CUTTER PM COLLAR CUTTER Mariam Butt MD LAB_1 Performing Organization Address City/State/ZIP Code Phon e Number [facility] [address] [phone] Extractable Nuclear Antigen Antibodies (04/14/2021 4:29 PM COLLAR CUTTER) athologist Signature MARTINEZ/APPRENTICE ELECTRICIAN 4 0 - 19 04/16/2021 [facility] (TONY) Ab, IGG Units 1:06 PM [facility]IES Comment: INTERPRETIVE INFORMATION: Martinez/APPRENTICE ELECTRICIAN (TONY ) Antibody, IgG ??19 Units or Less ............. Negati ve ??20 to 39 Units ............... Weak P ositive ??40 to 80 Units ............... Modera te Positive ??81 Units or greater .......... Strong Positive Martinez/APPRENTICE ELECTRICIAN antibodies are frequently seen in patients with mixed connective tissue disease (MCTD) and are also associated with other systemic autoimmune rheumatic dise ases (SARDs) such as systemic lupus erythematosus (SLE), syst emic sclerosis, and myositis. Antibodies targeting the Martinez /APPRENTICE ELECTRICIAN antigenic complex also recognize Martinez antigens, therefore , the Martinez antibody response must be considered when interpr eting these results. Performed By: [facility] [address] [place] [address] Head Of Quality: Sharon Gomez MD TONY To Martinez (Sm) 0 0 - 40 AU/mL 04/16/2021 1:06 PM COLLAR CUTTER [facility] Antibody Comment: INTERPRETIVE INFORMATION: Martinez (TONY) An [...] 0 - 40 AU/mL 2 1:06 PM COLLAR CUTTER [facility] IGG (TONY) Comment: INTERPRETIVE INFORMATION: SSA-52 (Ro52) [...] - 40 AU/mL 04/16/2021 1:0 6 PM COLLAR CUTTER [facility] (TONY) Comment: INTERPRETIVE INFORMATION: SSB (La) (TONY) [...] 0 - 40 AU/mL 04/16/2021 1:06 PM COLLAR CUTTER [facility] IGG (TONY) Comment: REFERENCE INTERVAL: SSA-60 (Ro60) (TONY) Antibody, IgG ??29 AU/mL or Less ............. Negati ve ??30 - 40 AU/mL ................ Equivo michael ??41 AU/mL or Greater .......... Positi ve Specimen Anatomical Collection Method / Collection Time Recei madelin Time (Source) Location / Volume Laterality Blood Venipuncture / 04/14/2021 4:29 04/14/2021 4:30 Unknown PM COLLAR CUTTER PM COLLAR CUTTER Mariam Butt MD LAB_1 Performing Organization Address City/State/ZIP Code Phon e Number [facility] [address] [phone] Anti-Nuclear Antibody Titer by Immunofluorescent Antibody (IFA) and Pattern (04/14/2021 4:29 PM COLLAR CUTTER) [facility] Method Time Signature BEAU Interpretation Negative Negative 04/15/2021 [facility] 10:00 AM LABORATORY COLLAR CUTTER Specimen Anatomical Collection Method / Collection Time Recei madelin Time (Source) Location / Volume Laterality Blood Venipuncture / 04/14/2021 4:29 04/14/2021 4:30 Unknown PM COLLAR CUTTER PM COLLAR CUTTER Mariam Butt MD LAB_1 Performing Organization Address City/State/ZIP [facility] Phon e Number [facility] [address] [place] [address] documented in this encounter Visit Diagnoses Diagnosis Pleural thickening Pleurisy without mention of effusion or current tuberculosis 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
--- OUTSIDE RECORDS SUMMARY | 2022-01-19 09:43 | XMS_ITS | Encounter Summary ---
:1945 Author Organization [facility] Address [address], [place] [address] Care Team Providers Name Role Phone Unavailable Primary Care Provider Unavailable Reason for Visit Procedure/Equipment (Routine) - Closed Specialty Diagnoses / Procedures Referred By Contact Refer red To Contact Diagnoses Pleural thickening Pulmonary fibrosis (HRC) Mariam Butt MD Procedures CT Chest WO IV Cont [address] [place], [place] [address] Referral ID Status Reason Start Date Expiration Date Visits Requ ested Visits Authorized [id number] Closed 09/01/2021 12/11/2022 1 1 Encounter Details Date Type Department Care Team Description 09/01/2021 Ancillary [place] Mariam Butt, Pleural t hickening; Procedure [place] [address] CT Pulmonary fibrosis (HRC) Scan 3931 [facility] [address] [place] [phone] Social History Tobacco Use Types Packs/Day Years [...] Appointment Radiology PN Mariam Butt MD [address]31 [facility] [place] N [phone] (Wo rk) 03/26/2022 Appointment Pulmonary 03/26/2022 Appointment Pulmonary Mariam Butt MD [address] [facility] [place] N [address] (Wo rk) documented as of this encounter Procedures Procedure Name Priority Date/Time Associated Diagnosis Comme nts CT CHEST WO IV CONT Routine 09/01/2021 12:28 PM Pleural thickening Results for this CDT Pulmonary fibrosis procedure are in (HRC) the [...] pulmonary nodule. 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
--- OUTSIDE RECORDS SUMMARY | 2022-01-19 09:43 | XMS_ITS | Encounter Summary ---
:1945 Author Organization [employer] Address [address] [address] Care Team Providers Name Role Phone Unavailable Primary Care Provider Unavailable Reason for Referral Procedure/Equipment (Routine) - Incomplete Specialty Diagnoses / Procedures Referred By Contact Refer red To Contact Diagnoses ILD (interstitial lung disease) ([facility]) Mariam Butt MD Procedures CT Chest WO IV Cont [address] [place], [place] [address] Referral ID Status Reason Start Date Expiration Date Visits V isits Requested Authorized [id number] Incomplete 03/04/2022 06/03/2023 1 1 Reason for Visit Reason Comments Pulmonary Encounter Details Date Type Department Care Team Description 09/01/2021 Office Visit [facility] Mariam Butt, IL[facility] [address] [facility] ([facility]) [place] [address] 39[address] [facility] (Primary Dx) [phone] [place] [address] (Wo rk) Social History Tobacco [...] Taken Comments Blood Pressure - - Pulse 65 09/01/2021 1:48 PM CDT Temperature - - Respiratory Rate - - Oxygen Saturation 97% 09/01/2021 1:48 PM CDT Inhaled Oxygen Concentration - - Weight 65.8 kg (145 lb) 09/01/2021 1:48 PM CDT Height 157.5 cm (5' 2) 09/01/2021 1:48 PM CDT Body Mass Index 26.52 09/01/2021 1:48 PM CDT documented in this encounter Progress Notes Mariam Butt MD - 09/01/2021 2:00 PM CDT Ingrid Osorio is a 75 y.o. female here today for follow up of probable ILD SUBJECTIVE: I last met with Ms. Osorio in March at which point a CT continued to demonstrate biapical reticulonodular opacities and pleural thickening which I felt may be a manifestation of ILD. BEAU, TONY, RF,CCP, scleroderma panel, myositis panel, HP panel were all negative. A pulmonary nodule had mildly inc reased in size to 7mm as well. She returns today with repeat CT chest that demonstrates no significant change in her reticular densities. The pulmonary nodule remains about the same size but is less dense today. She continues to do well without symptoms. OBJECTIVE: There were no vitals filed for this visit. General: Alert, oriented x 3, NAD Lungs: mild biapical crackles otherwise CTAB Cardiac: RRR, without MRG appreciated Abd: soft, nt, nd. Normoactive bowel sounds. No appreciable organomegaly Ext: without cyanosis, clubbing, or edema Mental: answering questions appropriately RESULTS: I have personally reviewed the CT chest results with the patient. Results as above ASSESSMENT: 1) ILD, apical predominant 2) Down exposure, ongoing 3) Pulmonary nodules I had the pleasure of meeting with Mrs. Osorio in clinic again today. Fortunately she remains asymptomatic without changes on imaging. The pulmonary nodules appear less dense than previous. We've agreed to follow up in [address] chest and lyn DL. If she starts to show progression, we will discuss steroids and I have told her that at that point she'll absolutely need to consider getting rid of her down. She is understanding of this. PLAN: 1) F/U [address] chest and lyn dl Total time: 20 minutes; Counseling time: 15 minutes Mariam Butt MD 09/01/2021 Mariam Butt MD Pulmonary Medicine [phone] This office note has been dictated. documented in this encounter Plan of Treatment Upcoming Encounters Date Type Specialty Care Team Description 03/26/2022 Appointment Radiology PN Mariam Butt MD [address] [place] [address] [address] (Wo rk) 03/26/2022 Appointment Pulmonary 03/26/2022 Appointment Pulmonary Mariam Butt MD [address] [place] N [phone] (Wo rk) Scheduled Orders Name Type Priority Associated Diagnoses Order S chedule CT Chest WO IV Cont Imaging New Routine ILD (interstitial isidoro g Expected: 03/04/2022 disease) ([facility]) (Approximate) , Expires: 2023 Spirometry with PFT Routine ILD (interstitial lung Ex pected: Diffusion disease) ([facility]) 03/04/2022, E xpires: 09/01/2022 documented as of this encounter Visit Diagnoses Diagnosis ILD (interstitial lung disease) ([facility]) - Primary Postinflammatory pulmonary fibrosis documented in this encounter
--- OUTSIDE RECORDS SUMMARY | 2022-01-19 09:44 | XMS_ITS | Encounter Summary ---
:1945 Author Organization [facility] Address [address], [place] [address] Care Team Providers Name Role Phone Unavailable Primary Care Provider Unavailable Reason for Visit Reason Onset Date Comments COVID Questions 03/18/2021 Encounter Details Date Type Department Care Team Description 03/20/2021 Lab Visit [facility] [place] [address] [place] [address] (Primary Dx) [phone] Social History Tobacco Use Types Packs/Day Years Used Date Smoking Tobacco: Never Assessed Sex Assigned at Date Recorded Not on file documented as of this encounter Plan of Treatment Upcoming Encounters Date Type Specialty Care Team Description 03/26/2022 Appointment Radiology PN Mariam Butt MD [address] [facility] N [address] (Wo rk) 03/26/2022 Appointment Pulmonary 03/26/2022 Appointment Pulmonary Mariam Butt MD [address] [facility] N [address] (Wo rk) documented as of this encounter Procedures Procedure Name Priority Date/Time Associated Comments Diagnosis 2019 NOVEL Routine 03/20/2021 10:06 Encounter for Results fo r this CORONAVIRUS AM BUMPER STRAIGHTENER screening for other procedur e are in viral diseases the results section. documented in this encounter Results Asymptomatic - 2019 Novel Coronavirus (COVID-19) (03/20/2021 10:06 AM BUMPER STRAIGHTENER) [facility] Method Time Signature COVID-19 Not Not 03/21/2021 [facility] Interpretation Detected Detected 4:21 PM [facility]ENTRAL [facility] BUMPER STRAIGHTENER Source Nares, left 03/21/2021 [facility] and right 4:21 PM CENTRAL LAB BUMPER STRAIGHTENER Specimen Anatomical Collection Method Collection Time Receive d Time (Source) Location / / Volume Laterality Swab (Source ENTIRE ANTERIOR Non-blood 03/20/2021 10:06 03/20/19 22 Required) NARIS / Unknown Collection / AM BUMPER STRAIGHTENER 10:06 AM BUMPER STRAIGHTENER Unknown Narrative [facility] - 03/21/2021 4:21 PM BUMPER STRAIGHTENER Tested by Polymerase Chain Reaction (PCR ), Manager Product Design-mediated amplification (TMA), or another nucleic acid amplifica tion test (NAAT). Demarcus Noel MD LAB_1 Performing Organization Address City/State/ZIP Code Phon e Number [facility] [address] [address] documented in this encounter Visit Diagnoses Diagnosis Encounter for screening for other viral diseases - Primary documented in this encounter
--- OUTSIDE RECORDS SUMMARY | 2022-01-19 09:44 | XMS_ITS | Encounter Summary ---
:1945 Author Organization [facility] Address [address] [place] [address] Care Team Providers Name Role Phone Unavailable Primary Care Provider Unavailable Encounter Details Date Type Department Care Team Description 03/24/2021 Orders Only [facility] DEPARTMENT Provider, June miranda [place] [address] Social History Tobacco Use Types Packs/Day Years [...] Appointment Radiology PN Mariam Butt MD [address] [facility] [place] N [address] (Wo rk) 03/26/2022 Appointment Pulmonary 03/26/2022 Appointment Pulmonary Mariam Butt MD [address] [facility] N [address] (Wo rk) documented as of this encounter Procedures Procedure Name Priority Date/Time Associated Diagnosis Comme nts PFT 03/24/2021 Results for thi s procedure are in the resu lts section. documented in this encounter Results PFT (03/24/2021) Narrative This result has an attachment that is no t available. Interface Provider DUMMY/OTHER/AR documented in this encounter Visit Diagnoses Not on filedocumented in this encounter
--- OUTSIDE RECORDS SUMMARY | 2022-01-19 09:44 | XMS_ITS | Encounter Summary ---
:1945 Author Organization [employer] Address [address] [place] [address] Care Team Providers Name Role Phone Unavailable Primary Care Provider Unavailable Encounter Details Date Type Department Care Team Description 03/24/2021 Pulmonary Lab Visit [facility] mplicated asthma, [place] unspecified asthma [address] [facility] [place], [place] [address] whether persistent [phone] (Primary Dx) Social History Tobacco Use Types Packs/Day Years [...] Appointment Radiology PN Mariam Butt MD [address] [facility] [address] (Richard shelley) 03/26/2022 Appointment Pulmonary 03/26/2022 Appointment Pulmonary Mariam Butt MD [address] [facility] N [address] (Richard shelley) Scheduled Orders Name Type Priority Associated Diagnoses Order S chedule Pulmonary Function PFT Routine Uncomplicated asthma, 1 Occurrences starting Test - Complete unspecified asthma 2021 until severity, unspecified 2022 whether persistent documented as of this encounter Visit Diagnoses Diagnosis Uncomplicated asthma, unspecified asthma severity, unspecified whether persistent (HRC) - Primary documented in this encounter
--- OUTSIDE RECORDS SUMMARY | 2022-01-19 09:44 | XMS_ITS | Encounter Summary ---
:1945 Author Organization [employer] Address [address] [address] Care Team Providers Name Role Phone Unavailable Primary Care Provider Unavailable Reason for Referral Procedure/Equipment (Routine) - Incomplete Specialty Diagnoses / Procedures Referred By Contact Refer red To Contact Diagnoses Reticulonodular infiltrate present on imaging of chest Mariam Butt MD Procedures CT Chest WO IV Cont Hi-Res [address] [place], [place] [address] Referral ID Status Reason Start Date Expiration Date Visits V isits Requested Authorized [id number] Incomplete 03/24/2021 06/23/2022 1 1 T METAL FABRICATOR Reason for Visit Reason Comments Pulmonary Encounter Details Date Type Department Care Team Description 03/24/2021 Office Visit Mariam Fatima Reticulono [place] [address] of [address] (Primary Dx) [place] [id number] Social History Tobacco Use Types Packs/Day Years Used Date Smoking Tobacco: Never Smokeless Tobacco: Never Alcohol Use Standard Drinks/Week Comments Not Currently 0 (1 standard drink = 0.6 oz pure alcoho l) Sex Assigned at Date Recorded Not on file documented as of this encounter Last Filed Vital Signs Vital Sign Reading Time Taken Comments Blood Pressure - - Pulse 70 03/24/2021 1:07 PM SHEET METAL FABRICATOR Temperature - - Respiratory Rate - - Oxygen Saturation 97% 03/24/2021 1:07 PM SHEET METAL FABRICATOR Inhaled Oxygen Concentration - - Weight 63.5 kg (140 lb) 03/24/2021 1:07 PM SHEET METAL FABRICATOR Height 160 cm (5' 3) 03/24/2021 1:07 PM SHEET METAL FABRICATOR Body Mass Index 24.8 03/24/2021 1:07 PM SHEET METAL FABRICATOR documented in this encounter Progress Notes Mariam Butt MD - 03/24/2021 1:00 PM CST Initial Pulmonary Consult Note Chief Complaint: bronchiectasis, fibrosis History of Present Illness: Ingrid Osorio is a very pleasant 75 y.o. female with a past medical history significant for osteopenia, thoracic vertebral fracture secondary to fall on ice, chronic back pain, and squamous cell lung cancer who is seen in consultation for bronchiectasis and fibrosis. Mrs. Osorio has no known history of lung disease. She fell and had a compression fracture of her thoracic vertebrae. Follow up imaging with MRI of the spine incidentally noted consolidation She has no shortness of breath, but does cough. She gets colds frequently and has been coughing for 3.5 weeks currently. But prior to this was cough free. She does report that she coughs longer after colds than most people. She was asymptomatic when the CT was performed. The CT was done, at the most, a month after the MRI. She does not recall having previous chest imaging, CT or CXR. No known family history of lung disease or needing to be on oxygen. She did have a bad cold many years ago, but isn't sure if this was a pneumonia. Review of Systems: All systems were reviewed and are negative except as noted in the HPI. 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 + Secondhand smoke expsoure. No other inhalants Travel: none Pets: No recent pets Asbestos exposure: Grew up in old house where pipes were wrapped. 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 No clear memory of these being disturbed Tb contacts: none known Outdoor hobbies: walking, gardening. Job: Retired teacher. 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 Other: +down, loves down. bleach fumes with laundry, once caused her to throw up several times. Had recently tried drano on the drains as well--this was spring 2020. Grew up on farm, dairy farm, grains, crops, + pesticides, + herbicides. Medications and Allergies No outpatient medications prior to visit. No facility-administered medications prior to visit. Not on File Physical Exam: There were no vitals taken for this visit. General appearance: awake, alert, oriented x3, no acute distress, appears stated age Eyes: PERRL, EOMI, sclera anicteric HEENT: not evaluated due to the pandemic Lymph: No lymphadenopathy appreciated in anterior cervical, posterior cervical, submental, submandibular, supraclavicular, or axillary areas Lungs: clear to auscultation bilaterally without crackles or wheezes Heart: regular rate and rhythm, without murmurs, rubs, or gallops appreciated Abdomen: soft, non-tender, non-distended. Normoactive bowel sounds. No appreciable organomegaly Extremities: all 4 extremities without cyanosis, clubbing, or edema Skin: No rashes or lesions on limited exam. Neurologic: alert, oriented, normal speech, no focal findings appreciated. Cranial nerves II-XII grossly intact. Strength normal bilaterally. Mental status - alert, answers questions appropriately DATA: No labs to review Radiology: I have personally reviewed the CT chest images from 01/06/2021 with the patient and my findings are consistent with that of the radiologist: Bilateral apical reticular opacities with superimposed consolidation R>L. No previous imaging to compare to PFT: FEV1/FVC predicted 75, actual 84, 112%, FEV1 94%, FVC 88%, TLC 84%, DLCO 84%. No bronchodilatorresponse. Consistent with normal test ZAHRAA: 17, normal IMPRESSION: 1) Bilateral apical reticulonodular opacities with superimposed consolidation 2) T8 compression fracture after a fall 3) Significant chemical exposure causing intractable nausea in the spring. No respiratory symptoms with this 4) Significant down exposure I had the pleasure of meeting with Mrs. Osorio in clinic today. Her CT images are somewhat hard tointerpret, as I cannot tell if the consolidation is related to her reticular changes or not. Withoutany previous chest imaging it's also hard to determine if this was an acute change or a change coordinator time. This would be an atypical presentation of pulmonary fibrosis, but not completely out of the question. She is asymptomatic, and PFTs are normal. Given this scenario we have elected to repeat a CT chest, as it has been almost 3 months, so we can see if there has been any interval change. If improved, we will continue to follow. If the same or increased I will work her up for ILD, and may ask her to remove the down from her home. I counseled her on this to know that I may ask her to do so in the future. We will plan on a follow up after the CT, and I have asked her to bring her spine MRI as well that initially saw the abnormalities, so I can compare them. RECOMMENDATIONS: 1) Repeat CT chest 2) Old images 3) RTC after testing to review results and next steps Mariam Butt MD Pulmonary Medicine Total Time: 60 minutes Counseling Time: 40 minutes T METAL FABRICATOR documented in this encounter Plan of Treatment Upcoming Encounters Date Type Specialty Care Team Description 03/26/2022 Appointment Radiology PN Mariam Butt MD [address] [facility] [place] N [address] (Wo rk) 03/26/2022 Appointment Pulmonary 03/26/2022 Appointment Pulmonary Mariam Butt MD [address] [facility] [place] N [address] (Wo rk) documented as of this encounter Results CT Chest WO IV Cont Hi-Res (04/14/2021 1:06 PM SHEET METAL FABRICATOR) Anatomical Region Laterality Modality Chest, Lung Computed Tomography Specimen (Source) Anatomical Collection Method Collection Time Re ceived Time Location / / Volume Laterality 04/14/2021 12:52 PM SHEET METAL FABRICATOR Impressions 04/14/2021 2:53 PM SHEET METAL FABRICATOR COMPARISON: ??01/06/2021 TECHNIQUE: ??High-resolution images of t [...] infiltrate present on im aging of chest - Primary Reticulonodular infiltrate present on im aging of chest documented in this encounter
--- OUTSIDE RECORDS SUMMARY | 2022-01-19 09:44 | XMS_ITS | Clinical Summary ---
:1945 Author Organization [facility] [place] [address] Care Team Providers Name Role Phone Harika Menendez MD Primary Care Provider Unavailable Allergies Not on File Medications Not on file Active Problems Not on file Social History Tobacco Use Types Packs/Day Years Used Date Never Assessed Sex Assigned at Date Recorded Not on file Plan of Treatment Health Maintenance Due Date Last Done Comments COVID-19 vaccine series (#1) 06/14/1946 Tdap 12/14/1958 Depression screening for age 12+ 1959 BMI (ht and wt on same day) for age 18+ 12/14/1965 Hepatitis C screening for age 18-79 12/14/1965 Tetanus booster 1967 Colonoscopy through age 75 12/14/1992 Lipids for age 45-75 12/14/1992 Mammogram for age 45-75 12/14/1992 Zoster (shingles) series for age 50+ (1 of 2) 12/14/1997 DEXA/DXA scan for age 65+ 12/14/2012 Medicare Wellness for age 65+ 12/14/2012 Pneumococcal series for age 65+ (1 - PCV) 12/14/2012 Influenza for age 65+ 10/29/2021 Results Not on filefrom Last 3 Months Insurance Payer Benefit Plan / Subscriber ID Effective Dates Phone Addre ss Type Group [employer] MR PERERA CROSS [id number] 2016-Present [address] [address] [place], [place] [id number] [phone] (Work) Care Teams Lead Sales Consultant Relationship Specialty Start Date End Date Harika Menendez MD PCP - General Family Practice 06/02/18
--- OUTSIDE RECORDS SUMMARY | 2022-01-19 09:44 | XMS_ITS | Encounter Summary ---
:1945 Author Organization [facility] Address [address] [place] [address] Care Team Providers Name Role Phone Unavailable Primary Care Provider Unavailable Reason for Visit (Routine) - Incomplete Specialty Diagnoses / Procedures Referred By Contact Refer red To Contact Procedures Provider, Foreign Images Foreign Image(s) MR T-Spine [address] [place] [address] Referral ID Status Reason Start Date Expiration Date Visits V isits Requested Authorized [id number] Incomplete 04/17/2021 07/17/2022 1 1 Encounter Details Date Type Department Care Team Description 12/02/2020 Ancillary Procedure [facility] Radiology PACS Provider, [place] [address] [address] [place] [address] Social History Tobacco Use Types Packs/Day Years Used Date Smoking Tobacco: Never Assessed Sex Assigned at Date Recorded Not on file documented as of this encounter Plan of Treatment Upcoming Encounters Date Type Specialty Care Team Description 03/26/2022 Appointment Radiology PN Mariam Butt MD 39[address] [facility] N [address] (Wo rk) 03/26/2022 Appointment Pulmonary 03/26/2022 Appointment Pulmonary Mariam Butt MD [address] [facility] N [address] (Wo rk) documented as of this encounter Procedures Procedure Name Priority Date/Time Associated Diagnosis Comme nts FOREIGN IMAGE(S) MR Routine 12/02/2020 9:50 AM Re sults for this T-SPINE WO IV CONT CDT procedure are in the results section. documented in this encounter Results Foreign Image(s) MR T-Spine WO IV Cont (12/02/2020 9:50 AM CDT) Specimen (Source) Anatomical Location Collection Method / Collectio n Time Received Time / Laterality Volume Narrative POCT - 04/17/2021 9:48 AM HOSTESS These outside images have been uploaded into PACS. If the results were provided, they will be located in the denisse hernandez's chart under the Media or Imaging tab. Foreign Images Provider RAD NON-REPORTABLES Performing Organization Address City/State/ZIP Code Phon e Number POCT documented in this encounter Visit Diagnoses Not on filedocumented in this encounter
--- OUTSIDE RECORDS SUMMARY | 2022-01-19 09:44 | XMS_ITS | Encounter Summary ---
:1945 Author Organization [employer] Address [address], [place] [address] Care Team Providers Name Role Phone Unavailable Primary Care Provider Unavailable Encounter Details Date Type Department Care Team Description 01/07/2021 Telephone Specialty Center 3931 Provider, Not On File Pulmonary Medicine [address] [facility] [address] [place] [address] Social History Tobacco Use Types Packs/Day Years Used Date Smoking Tobacco: Never Assessed Sex Assigned at Date Recorded Not on file documented as of this encounter Nursing Notes David Glass - 01/07/2021 1:36 PM CST Lm for pt to call us back to schedule a pulmonary cons for fibrosis bronchiectasis this is a referral from [facility] she will need a pft and covid test unless she is completely vaccinatedThen we would need her to bring her white card or if its on her phone She has a Chest ct done And will need to hand carry the disk ULATOR OPERATOR documented in this encounter Plan of Treatment Upcoming Encounters Date Type Specialty Care Team Description 03/26/2022 Appointment Radiology PN Mariam Butt MD [address] [facility] [place] N [address] (Wo rk) 03/26/2022 Appointment Pulmonary 03/26/2022 Appointment Pulmonary Mariam Butt MD [address] [facility] [place] [address] [address] (Wo karsten) documented as of this encounter Visit Diagnoses Not on filedocumented in this encounter
--- OUTSIDE RECORDS SUMMARY | 2022-01-19 09:44 | XMS_ITS | Encounter Summary ---
:1945 [facility] Address [address] [place] [address] Care Team Providers Name Role Phone Unavailable Primary Care Provider Unavailable Reason for Visit Procedure/Equipment (Routine) - Incomplete Specialty Diagnoses / Procedures Referred By Contact Refer red To Contact Procedures Provider, Foreign Images Foreign Image(S) CT Chest [address] [place] [address] Referral ID Status Reason Start Date Expiration Date Visits V isits Requested Authorized [id number] Incomplete 03/24/2021 06/23/2022 1 1 Encounter Details Date Type Department Care Team Description 01/06/2021 Ancillary Procedure [facility] Radiology PACS Provider, [facility] [address] [place] [address] [address] [place] [address] Social History Tobacco Use Types Packs/Day Years Used Date Smoking Tobacco: Never Assessed Sex Assigned at Date Recorded Not on file documented as of this encounter Plan of Treatment Upcoming Encounters Date Type Specialty Care Team Description 03/26/2022 Appointment Radiology PN Mariam Butt MD [address] [facility] [address] [id number] (Wo rk) 03/26/2022 Appointment Pulmonary 03/26/2022 Appointment Pulmonary Mariam Butt MD [address] [facility] [address] [id number] (Wo rk) documented as of this encounter Procedures Procedure Name Priority Date/Time Associated Diagnosis Comme nts FOREIGN IMAGE(S) CT Routine 01/06/2021 12:20 PM R esults for this CHEST WEB MARKETING STRATEGIST procedure are i n the results section. documented in this encounter Results Foreign Image(S) CT Chest (01/06/2021 12:20 PM WEB MARKETING STRATEGIST) Specimen (Source) Anatomical Location Collection Method / Collectio n Time Received Time / Laterality Volume Narrative POCT - 03/24/2021 12:17 PM WEB MARKETING STRATEGIST These outside images have been uploaded into PACS. If the results were provided, they will be located in the pa tient's chart under the Media or Imaging tab. Foreign Images Provider RAD NON-REPORTABLES Performing Organization Address City/State/ZIP Code Phon e Number POCT documented in this encounter Visit Diagnoses Not on filedocumented in this encounter
--- NOTE | 2022-01-19 09:45 | CRLHL7_ITS ---
For Patients: As a result of the Century Cures Act, medical imaging exams and procedure reports are released immediately into your electronic medical record. You may view this report before your referring provider. If you have questions, please contact your health care provider. BILATERAL SCREENING MAMMOGRAM WITH COMPUTER-AIDED DETECTION AND TOMOSYNTHESIS TECHNIQUE: CC and MLO views were obtained. These mammographic images have been obtained using full-field digital technique. These mammographic images were interpreted with the benefit of computer-aided detection. Breast Tomosynthesis was used in this interpretation. COMPARISON FILM: 12/22/20, 12/21/19, 12/19/18. FINDINGS: The breasts are heterogeneously dense, which may obscure small masses IMPRESSION: There is no radiographic evidence for malignancy. ASSESSMENT: BI-RADS Category 1: Negative RECOMMENDATION: Routine screening mammogram in 1 year. A lay language report of this examination will be provided to the patient. Usman Bates M.D. Diagnostic Radiologist [email or web address] FAMILIA/Dictated by: Usman Bates MD @ 01/19/2022 11:19:00 AM (Electronically Signed)
== END 2022-01-19 09:29 | disposition home or self-care (01) ==
LOC: MAMMO 09:31
PROVIDERS: PCP Family Medicine; Visit Provider Family Medicine
DX: Z12.31 Encounter for screening mammogram for malignant neoplasm of breast (principal); R92.2 Inconclusive mammogram
CPT/HCPCS: 77063; 77067

== ENCOUNTER 2022-03-04 10:00 | Outpatient (RCR) | payer MEDICARE, BC, SELFPAY ==
[2021-10-08 13:12] LABS: Albumin* 4.3 g/dL (3.3-5.0); Chloride* 100 mmol/L (96-114)
[2021-10-08 13:13] LABS: Sodium* 135 mmol/L (135-149)
[2021-10-08 13:15] LABS: Alanine Aminotransferase* 30 U/L (4-35); Alkaline Phosphatase* 47 U/L (40-150); Aspartate Amino Transferase* 44 U/L (12-35); Bilirubin Total* 0.5 mg/dL (0.1-1.5); Blood Urea Nitrogen* 28 mg/dL (7-30); Carbon Dioxide* 30 mmol/L (20-32); Cholesterol* 184 mg/dL (90-199); Creatinine* 1.1 mg/dL (0.5-1.5); Estimated Glomerular Filt Rate 53 ml/min; Glucose* 97 mg/dL (60-115); Total Protein* 7.3 g/dL (6.0-8.3); Triglycerides* 120 mg/dL (40-149)
[2021-10-08 13:16] LABS: Calcium* 9.2 mg/dL (8.4-10.6); HDL Cholesterol* 56 mg/dL (>=50); LDL Cholesterol Calculated 104 mg/dL (<100)
[2021-10-08 13:19] LABS: Hemoglobin* 13.4 gm/dL (12.0-16.0); Mean Corpuscular Volume 107 fL (80-100); Red Blood Count 3.85 m/uL (4.00-5.20); White Blood Count* 8.36 K/uL (4.50-11.00)
[2021-10-08 13:20] LABS: Basophils Percent Auto 1.1 % (0.0-3.0); Eosinophils Percent Auto 4.7 % (0.0-7.0); Immature Granulocytes Pct Auto 0.1 %; Lymphocytes Percent Auto 22.4 % (20-44); Mean Corpuscular HGB Conc 33 gm/dL (32-36); Mean Corpuscular Hemoglobin 35 pg (26-34); Monocytes Percent Auto 9.8 % (0.0-11.0); Neutrophils Percent Auto 61.9 % (42.0-72.0); Platelet Count* 460 K/uL (140-440)
[2021-10-08 13:21] LABS: Slide Review Reflex No
[2021-10-08 14:04] LABS: Vitamin B12* 459 pg/mL (243-894)
[2021-10-09 19:38] LABS: Vitamin D, 1,25-Dihydroxy 39.4 pg/mL (19.9-79.3)
[2021-11-05 11:11] LABS: Basophils Absolute Auto 0.08 K/uL (0.00-0.30); Basophils Percent Auto 1.1 % (0.0-3.0); Eosinophils Absolute Auto 0.46 K/uL (0.00-0.50); Eosinophils Percent Auto 6.1 % (0.0-7.0); Hematocrit 41.1 % (33.0-51.0); Hemoglobin* 13.6 gm/dL (12.0-16.0); Immature Granulocytes Abs Auto 0.01 K/uL (0.00-0.30); Lymphocytes Absolute Auto 1.64 K/uL (0.90-2.90); Lymphocytes Percent Auto 21.8 % (20-44); Mean Corpuscular HGB Conc 33 gm/dL (32-36); Mean Corpuscular Hemoglobin 36 pg (26-34); Mean Corpuscular Volume 107 fL (80-100); Monocytes Percent Auto 8.8 % (0.0-11.0); Neutrophils Absolute Auto 4.66 K/uL (1.7-7.0); Neutrophils Percent Auto 62.1 % (42.0-72.0); Platelet Count* 389 K/uL (140-440); RDW Coefficient of Variation % 13.3 % (11.5-15.5); Red Blood Count 3.83 m/uL (4.00-5.20); White Blood Count* 7.51 K/uL (4.50-11.00)
[2021-11-05 11:16] LABS: Slide Review Reflex No
--- NOTE | 2021-11-05 13:12 | ONC.NURNOTE ---
Labs reviewed by Lynn Bauer CNP. Pad Extraction Tender called pt and left message with results and no change at this time.
[2021-12-03 10:19] LABS: Basophils Absolute Auto 0.08 K/uL (0.00-0.30); Basophils Percent Auto 1.1 % (0.0-3.0); Eosinophils Absolute Auto 0.46 K/uL (0.00-0.50); Eosinophils Percent Auto 6.3 % (0.0-7.0); Hematocrit 41.8 % (33.0-51.0); Hemoglobin* 13.6 gm/dL (12.0-16.0); Immature Granulocytes Abs Auto 0.02 K/uL (0.00-0.30); Lymphocytes Absolute Auto 1.59 K/uL (0.90-2.90); Lymphocytes Percent Auto 21.6 % (20-44); Mean Corpuscular HGB Conc 33 gm/dL (32-36); Mean Corpuscular Hemoglobin 35 pg (26-34); Mean Corpuscular Volume 109 fL (80-100); Monocytes Percent Auto 10.1 % (0.0-11.0); Neutrophils Absolute Auto 4.47 K/uL (1.7-7.0); Neutrophils Percent Auto 60.6 % (42.0-72.0); Platelet Count* 452 K/uL (140-440); RDW Coefficient of Variation % 13.5 % (11.5-15.5); Red Blood Count 3.85 m/uL (4.00-5.20); White Blood Count* 7.36 K/uL (4.50-11.00)
[2021-12-03 10:23] LABS: Slide Review Reflex No
[2021-12-28 09:12] LABS: Basophils Absolute Auto 0.11 K/uL (0.00-0.30); Basophils Percent Auto 1.3 % (0.0-3.0); Eosinophils Absolute Auto 0.52 K/uL (0.00-0.50); Hematocrit 43.9 % (33.0-51.0); Hemoglobin* 14.4 gm/dL (12.0-16.0); Immature Granulocytes Abs Auto 0.01 K/uL (0.00-0.30); Lymphocytes Absolute Auto 1.79 K/uL (0.90-2.90); Lymphocytes Percent Auto 20.7 % (20-44); Mean Corpuscular HGB Conc 33 gm/dL (32-36); Mean Corpuscular Hemoglobin 36 pg (26-34); Mean Corpuscular Volume 109 fL (80-100); Monocytes Percent Auto 8.6 % (0.0-11.0); Neutrophils Absolute Auto 5.47 K/uL (1.7-7.0); Neutrophils Percent Auto 63.3 % (42.0-72.0); Platelet Count* 478 K/uL (140-440); RDW Coefficient of Variation % 13.4 % (11.5-15.5); Red Blood Count 4.03 m/uL (4.00-5.20); White Blood Count* 8.64 K/uL (4.50-11.00)
[2021-12-28 09:13] LABS: Slide Review Reflex No
--- NOTE | 2022-01-01 14:27 | ONC.NURNOTE ---
LM on VM to call for this weeks lab results reviewed by Lynn Edgar CNP no dose change for hydrea ok to go back to [facility] lab monitoring next due late Jan/Early Feb
[2022-03-04 10:20] LABS: Basophils Absolute Auto 0.09 K/uL (0.00-0.30); Basophils Percent Auto 1.1 % (0.0-3.0); Eosinophils Absolute Auto 0.33 K/uL (0.00-0.50); Eosinophils Percent Auto 4.2 % (0.0-7.0); Hematocrit 42.6 % (33.0-51.0); Hemoglobin* 14.1 gm/dL (12.0-16.0); Immature Granulocytes Abs Auto 0.01 K/uL (0.00-0.30); Immature Granulocytes Pct Auto 0.1 %; Lymphocytes Percent Auto 18.2 % (20-44); Mean Corpuscular HGB Conc 33 gm/dL (32-36); Mean Corpuscular Hemoglobin 36 pg (26-34); Mean Corpuscular Volume 108 fL (80-100); Monocytes Percent Auto 8.9 % (0.0-11.0); Neutrophils Absolute Auto 5.28 K/uL (1.7-7.0); Neutrophils Percent Auto 67.5 % (42.0-72.0); Platelet Count* 492 K/uL (140-440); RDW Coefficient of Variation % 12.9 % (11.5-15.5); Red Blood Count 3.96 m/uL (4.00-5.20); White Blood Count* 7.84 K/uL (4.50-11.00)
[2022-03-04 11:11] LABS: Slide Review Reflex No
--- NOTE | 2022-03-05 10:06 | ONC.NURNOTE ---
Lab results reviewed by provider and called to Michaela discussed platetets slow rise no dose changes at this time
--- NOTE | 2022-03-05 10:08 | ONC.NURNOTE ---
Addendum entered by Lashawn Temple RN 03/09/22 11:31: Return call about red bump- reports improvement while using desitin rec per Dr Barajas that she follow up with PCP is worsens or doesn't improve unable to determine if any relationship to hydrea Michaela states understanding and in agreement Original Note: Michaela reports several months occurrence of raise red bump in her groin crease along her underwear line She saw her PCP who treated it as a possible yeast infection and was given antifungal cream X 2 weeks which did not seem to help PCP also suggested using Desitin type cream as a skin protectant and she says that is helping somewhat but bump still present not as prominent area is not an open lesion- more blister like
== END 2022-04-06 23:59 | disposition home or self-care (01) ==
LOC: CCIC 10:00
PROVIDERS: PCP Family Medicine; Referring Provider Family Medicine; Visit Provider Internal Medicine Hematology & Oncology
DX: D47.3 Essential (hemorrhagic) thrombocythemia (principal)
CPT/HCPCS: 36415; 80053; 80061; 82607; 82652; 84443; 85025; 99212; 99214

== ENCOUNTER 2022-09-30 11:00 | Outpatient (RCR) | payer MEDICARE, BC, SELFPAY ==
[2022-06-07 11:21] LABS: Basophils Absolute Auto 0.09 K/uL (0.00-0.30); Basophils Percent Auto 1.3 % (0.0-3.0); Eosinophils Absolute Auto 0.31 K/uL (0.00-0.50); Eosinophils Percent Auto 4.6 % (0.0-7.0); Hematocrit 42.9 % (33.0-51.0); Immature Granulocytes Abs Auto 0.01 K/uL (0.00-0.30); Immature Granulocytes Pct Auto 0.1 %; Lymphocytes Absolute Auto 1.45 K/uL (0.90-2.90); Lymphocytes Percent Auto 21.4 % (20-44); Mean Corpuscular HGB Conc 33 gm/dL (32-36); Mean Corpuscular Hemoglobin 36 pg (26-34); Mean Corpuscular Volume 110 fL (80-100); Neutrophils Absolute Auto 4.31 K/uL (1.7-7.0); Neutrophils Percent Auto 63.6 % (42.0-72.0); Platelet Count* 410 K/uL (140-440); RDW Coefficient of Variation % 13.4 % (11.5-15.5); Red Blood Count 3.89 m/uL (4.00-5.20); White Blood Count* 6.78 K/uL (4.50-11.00)
[2022-06-07 11:23] LABS: Slide Review Reflex No
[2022-07-05 10:35] LABS: Basophils Absolute Auto 0.07 K/uL (0.00-0.30); Basophils Percent Auto 1.1 % (0.0-3.0); Eosinophils Absolute Auto 0.26 K/uL (0.00-0.50); Eosinophils Percent Auto 4.3 % (0.0-7.0); Hematocrit 41.2 % (33.0-51.0); Hemoglobin* 13.6 gm/dL (12.0-16.0); Immature Granulocytes Abs Auto 0.01 K/uL (0.00-0.30); Immature Granulocytes Pct Auto 0.2 %; Lymphocytes Absolute Auto 1.22 K/uL (0.90-2.90); Mean Corpuscular HGB Conc 33 gm/dL (32-36); Mean Corpuscular Hemoglobin 37 pg (26-34); Mean Corpuscular Volume 111 fL (80-100); Monocytes Percent Auto 7.2 % (0.0-11.0); Neutrophils Absolute Auto 4.09 K/uL (1.7-7.0); Neutrophils Percent Auto 67.2 % (42.0-72.0); Platelet Count* 399 K/uL (140-440); RDW Coefficient of Variation % 13.5 % (11.5-15.5); Red Blood Count 3.71 m/uL (4.00-5.20); White Blood Count* 6.09 K/uL (4.50-11.00)
[2022-07-05 10:38] LABS: Slide Review Reflex No
--- NOTE | 2022-07-07 10:24 | ONC.NURNOTE ---
labs noted by Dr Crocker and called to Michaela confirmed doses and next appts
[2022-08-09 08:21] LABS: Basophils Absolute Auto 0.05 K/uL (0.00-0.30); Basophils Percent Auto 0.8 % (0.0-3.0); Eosinophils Absolute Auto 0.35 K/uL (0.00-0.50); Eosinophils Percent Auto 5.9 % (0.0-7.0); Hematocrit 41.8 % (33.0-51.0); Hemoglobin* 13.8 gm/dL (12.0-16.0); Lymphocytes Absolute Auto 1.26 K/uL (0.90-2.90); Lymphocytes Percent Auto 21.1 % (20-44); Mean Corpuscular HGB Conc 33 gm/dL (32-36); Mean Corpuscular Hemoglobin 37 pg (26-34); Mean Corpuscular Volume 112 fL (80-100); Monocytes Percent Auto 11.2 % (0.0-11.0); Neutrophils Absolute Auto 3.64 K/uL (1.7-7.0); Platelet Count* 409 K/uL (140-440); Red Blood Count 3.74 m/uL (4.00-5.20); White Blood Count* 5.97 K/uL (4.50-11.00)
[2022-08-09 08:26] LABS: Slide Review Reflex No
--- NOTE | 2022-08-09 13:00 | ONC.NURNOTE ---
Labs reviewed by Dr Crocker and called to Michaela no dose change indicated next appt reviewed and next follow up scheduled
[2022-09-03 11:04] LABS: Basophils Absolute Auto 0.06 K/uL (0.00-0.30); Basophils Percent Auto 0.9 % (0.0-3.0); Eosinophils Percent Auto 5.8 % (0.0-7.0); Hematocrit 40.8 % (33.0-51.0); Hemoglobin* 13.4 gm/dL (12.0-16.0); Lymphocytes Percent Auto 18.5 % (20-44); Mean Corpuscular HGB Conc 33 gm/dL (32-36); Mean Corpuscular Hemoglobin 37 pg (26-34); Mean Corpuscular Volume 112 fL (80-100); Monocytes Percent Auto 9.6 % (0.0-11.0); Neutrophils Absolute Auto 4.48 K/uL (1.7-7.0); Neutrophils Percent Auto 65.2 % (42.0-72.0); Platelet Count* 360 K/uL (140-440); Red Blood Count 3.63 m/uL (4.00-5.20); White Blood Count* 6.87 K/uL (4.50-11.00)
[2022-09-03 11:09] LABS: Slide Review Reflex No
[2022-09-30 11:25] LABS: Hematocrit 40.7 % (33.0-51.0); Hemoglobin* 13.1 gm/dL (12.0-16.0); Mean Corpuscular HGB Conc 32 gm/dL (32-36); Mean Corpuscular Hemoglobin 36 pg (26-34); Mean Corpuscular Volume 113 fL (80-100); Neutrophils Percent Auto 65.1 % (42.0-72.0); Platelet Count* 351 K/uL (140-440); Red Blood Count 3.61 m/uL (4.00-5.20); White Blood Count* 7.03 K/uL (4.50-11.00)
[2022-09-30 11:26] LABS: Basophils Absolute Auto 0.05 K/uL (0.00-0.30); Basophils Percent Auto 0.7 % (0.0-3.0); Eosinophils Absolute Auto 0.35 K/uL (0.00-0.50); Immature Granulocytes Abs Auto 0.01 K/uL (0.00-0.30); Immature Granulocytes Pct Auto 0.1 %; Lymphocytes Percent Auto 19.3 % (20-44); Monocytes Percent Auto 9.8 % (0.0-11.0); Neutrophils Absolute Auto 4.57 K/uL (1.7-7.0)
[2022-09-30 11:32] LABS: Slide Review Reflex No
--- NOTE | 2022-09-30 13:52 | ONC.NURNOTE ---
todays labs wnl. left in Lizzette box to review tuesday. pt on Hydrea.
--- NOTE | 2022-11-09 14:15 | ONC.NURNOTE ---
Labs noted from 10/29 LMOM to call for results or if any questions appt next week with Dr Crocker
== END 2022-12-04 23:59 | disposition home or self-care (01) ==
LOC: CCIC 11:00
PROVIDERS: PCP Family Medicine; Referring Provider Family Medicine; Visit Provider Internal Medicine Hematology & Oncology
DX: D47.3 Essential (hemorrhagic) thrombocythemia (principal)
CPT/HCPCS: 36415; 85025; 99212; 99213; 99214

== ENCOUNTER 2022-10-29 10:47 | Outpatient (CLI) | payer MEDICARE, BC, SELFPAY | END 2022-10-29 10:48 | disposition home or self-care (01) | LOC: NFLDREF 15:29 | PROVIDERS: PCP Family Medicine; Referring Provider Family Medicine; Visit Provider Family Medicine | DX: E78.5 Hyperlipidemia, unspecified (principal); E03.9 Hypothyroidism, unspecified; D75.839 Thrombocytosis, unspecified; M85.89 Other specified disorders of bone density and structure, multiple sites; L23.7 Allergic contact dermatitis due to plants, except food; D47.3 Essential (hemorrhagic) thrombocythemia | CPT/HCPCS: 80053; 80061; 82306; 84443 ==

== ENCOUNTER 2023-01-28 08:07 | Outpatient (CLI) | payer MEDICARE, BC, SELFPAY ==
--- NOTE | 2023-01-28 08:15 | CRLHL7_ITS ---
For Patients: As a result of the Cures Act, medical imaging exams and procedure reports are released immediately into your electronic medical record. You may view this report before your referring provider. If you have questions, please contact your health care provider. BILATERAL SCREENING MAMMOGRAM WITH COMPUTER-AIDED DETECTION AND TOMOSYNTHESIS TECHNIQUE: CC and MLO views were obtained. These mammographic images have been obtained using full-field digital technique. These mammographic images were interpreted with the benefit of computer-aided detection. Breast tomosynthesis was used in this interpretation. COMPARISON FILM: 01/19/22, 12/22/20, 12/21/19. FINDINGS: There are scattered areas of fibroglandular density. IMPRESSION: There is no radiographic evidence for malignancy. ASSESSMENT: BI-RADS Category 1: Negative RECOMMENDATION: Routine screening mammogram in 1 year. A lay language report of this examination will be provided to the patient. USMAN LIAO M.D. Diagnostic Radiologist [email or web address] [email or web address]/[email or web address] Transcribed: 02/01/2023, 2:[address]/Dictated by: Usman Liao MD @ 02/01/2023 8:44:00 AM (Electronically Signed)
== END 2023-01-28 08:08 | disposition home or self-care (01) ==
LOC: MAMMO 08:08
PROVIDERS: PCP Family Medicine; Visit Provider Family Medicine
DX: Z12.31 Encounter for screening mammogram for malignant neoplasm of breast (principal)
CPT/HCPCS: 77063; 77067

== ENCOUNTER 2023-03-09 10:00 | Outpatient (RCR) | payer MEDICARE, BC, SELFPAY ==
[2022-12-07 14:07] LABS: Basophils Absolute Auto 0.05 K/uL (0.00-0.30); Basophils Percent Auto 0.7 % (0.0-3.0); Eosinophils Absolute Auto 0.28 K/uL (0.00-0.50); Eosinophils Percent Auto 4.1 % (0.0-7.0); Hematocrit 40.7 % (33.0-51.0); Hemoglobin* 13.3 gm/dL (12.0-16.0); Immature Granulocytes Abs Auto 0.01 K/uL (0.00-0.30); Immature Granulocytes Pct Auto 0.1 %; Lymphocytes Absolute Auto 1.66 K/uL (0.90-2.90); Lymphocytes Percent Auto 24.1 % (20-44); Mean Corpuscular HGB Conc 33 gm/dL (32-36); Mean Corpuscular Hemoglobin 37 pg (26-34); Mean Corpuscular Volume 113 fL (80-100); Monocytes Percent Auto 8.9 % (0.0-11.0); Neutrophils Absolute Auto 4.28 K/uL (1.7-7.0); Neutrophils Percent Auto 62.1 % (42.0-72.0); Platelet Count* 411 K/uL (140-440); Red Blood Count 3.61 m/uL (4.00-5.20); White Blood Count* 6.89 K/uL (4.50-11.00)
[2022-12-07 14:19] LABS: Slide Review Reflex No
[2023-03-09 10:23] LABS: Basophils Absolute Auto 0.07 K/uL (0.00-0.30); Basophils Percent Auto 1.2 % (0.0-3.0); Eosinophils Absolute Auto 0.32 K/uL (0.00-0.50); Eosinophils Percent Auto 5.4 % (0.0-7.0); Hematocrit 44.7 % (33.0-51.0); Hemoglobin* 14.7 gm/dL (12.0-16.0); Lymphocytes Absolute Auto 1.58 K/uL (0.90-2.90); Lymphocytes Percent Auto 26.4 % (20-44); Mean Corpuscular HGB Conc 33 gm/dL (32-36); Mean Corpuscular Hemoglobin 36 pg (26-34); Mean Corpuscular Volume 111 fL (80-100); Monocytes Percent Auto 9.5 % (0.0-11.0); Neutrophils Absolute Auto 3.44 K/uL (1.7-7.0); Neutrophils Percent Auto 57.5 % (42.0-72.0); Platelet Count* 444 K/uL (140-440); RDW Coefficient of Variation % 12.4 % (11.5-15.5); Red Blood Count 4.04 m/uL (4.00-5.20); White Blood Count* 5.98 K/uL (4.50-11.00)
[2023-03-09 10:30] LABS: Slide Review Reflex No
[2023-03-09 11:08] LABS: Albumin* 4.7 g/dL (3.3-5.0)
[2023-03-09 11:09] LABS: Chloride* 105 mmol/L (96-114); Potassium* 4.3 mmol/L (3.6-5.1); Sodium* 138 mmol/L (135-149)
[2023-03-09 11:11] LABS: Alkaline Phosphatase* 45 U/L (40-150); Anion Gap 7 mEq/L (7-15); Aspartate Amino Transferase* 37 U/L (12-35); Bilirubin Total* 0.7 mg/dL (0.1-1.5); Carbon Dioxide* 26 mmol/L (20-32); Creatinine* 0.9 mg/dL (0.5-1.5); Estimated Glomerular Filt Rate 67 ml/min
[2023-03-09 11:12] LABS: Alanine Aminotransferase* 30 U/L (4-35); Blood Urea Nitrogen* 23 mg/dL (7-30); Calcium* 9.2 mg/dL (8.4-10.6); Glucose* 104 mg/dL (60-115); Lactate Dehydrogenase* 267 U/L (120-246); Total Protein* 7.8 g/dL (6.0-8.3)
--- NOTE | 2023-03-09 15:30 | ONC.NURNOTE ---
Labs reviewed by Dr. Crocker. Health Spa Manager discussed concerns of hair loss with Dr. Crocker and Dr. Crocker stated pt could follow up with her primary care. Health Spa Manager called pt to let her know Dr. Crocker reviewed labs and recommended following up with primary care for the hair loss. Pt verbalized understanding of recommendations.
== END 2023-06-05 23:59 | disposition home or self-care (01) ==
LOC: CCIC 10:00
PROVIDERS: Internal Medicine Hematology & Oncology; PCP Family Medicine; Referring Provider Family Medicine; Visit Provider Internal Medicine Hematology & Oncology
DX: D47.3 Essential (hemorrhagic) thrombocythemia (principal)
CPT/HCPCS: 36415; 80053; 83615; 85025; 99212; 99213; 99214

== ENCOUNTER 2023-10-05 14:00 | Outpatient (RCR) | payer MEDICARE, BC, SELFPAY ==
[2023-06-07 10:48] LABS: Basophils Absolute Auto 0.08 K/uL (0.00-0.30); Eosinophils Percent Auto 5.2 % (0.0-7.0); Hematocrit 44.7 % (33.0-51.0); Hemoglobin* 14.5 gm/dL (12.0-16.0); Immature Granulocytes Abs Auto 0.01 K/uL (0.00-0.30); Immature Granulocytes Pct Auto 0.1 %; Lymphocytes Percent Auto 18.1 % (20-44); Mean Corpuscular HGB Conc 32 gm/dL (32-36); Mean Corpuscular Hemoglobin 36 pg (26-34); Mean Corpuscular Volume 110 fL (80-100); Monocytes Percent Auto 8.2 % (0.0-11.0); Neutrophils Absolute Auto 5.19 K/uL (1.7-7.0); Neutrophils Percent Auto 67.4 % (42.0-72.0); Platelet Count* 485 K/uL (140-440); RDW Coefficient of Variation % 13.1 % (11.5-15.5); Red Blood Count 4.05 m/uL (4.00-5.20)
[2023-06-07 10:52] LABS: Slide Review Reflex No
[2023-06-07 11:26] LABS: Albumin* 4.5 g/dL (3.3-5.0)
[2023-06-07 11:27] LABS: Chloride* 102 mmol/L (96-114); Potassium* 4.5 mmol/L (3.6-5.1); Sodium* 139 mmol/L (135-149)
[2023-06-07 11:29] LABS: Anion Gap 4 mEq/L (7-15); Aspartate Amino Transferase* 42 U/L (12-35); Bilirubin Total* 0.5 mg/dL (0.1-1.5); Carbon Dioxide* 33 mmol/L (20-32); Creatinine* 1.1 mg/dL (0.5-1.5); Estimated Glomerular Filt Rate 52 ml/min
[2023-06-07 11:30] LABS: Alanine Aminotransferase* 39 U/L (4-35); Alkaline Phosphatase* 50 U/L (40-150); Blood Urea Nitrogen* 23 mg/dL (7-30); Calcium* 10.1 mg/dL (8.4-10.6); Glucose* 101 mg/dL (60-115); Lactate Dehydrogenase* 289 U/L (120-246); Total Protein* 7.9 g/dL (6.0-8.3)
[2023-08-03 13:22] LABS: Basophils Absolute Auto 0.06 K/uL (0.00-0.30); Basophils Percent Auto 0.9 % (0.0-3.0); Eosinophils Absolute Auto 0.18 K/uL (0.00-0.50); Eosinophils Percent Auto 2.7 % (0.0-7.0); Hematocrit 40.6 % (33.0-51.0); Hemoglobin* 13.1 gm/dL (12.0-16.0); Immature Granulocytes Abs Auto 0.01 K/uL (0.00-0.30); Immature Granulocytes Pct Auto 0.1 %; Lymphocytes Percent Auto 19.3 % (20-44); Mean Corpuscular HGB Conc 32 gm/dL (32-36); Mean Corpuscular Hemoglobin 36 pg (26-34); Mean Corpuscular Volume 112 fL (80-100); Monocytes Percent Auto 10.4 % (0.0-11.0); Neutrophils Absolute Auto 4.46 K/uL (1.7-7.0); Neutrophils Percent Auto 66.6 % (42.0-72.0); Platelet Count* 429 K/uL (140-440); RDW Coefficient of Variation % 13.5 % (11.5-15.5); Red Blood Count 3.62 m/uL (4.00-5.20)
[2023-08-03 13:23] LABS: Slide Review Reflex No
[2023-08-03 13:27] LABS: Chloride* 101 mmol/L (96-114)
[2023-08-03 13:28] LABS: Albumin* 4.4 g/dL (3.3-5.0); Potassium* 4.6 mmol/L (3.6-5.1); Sodium* 136 mmol/L (135-149)
[2023-08-03 13:30] LABS: Estimated Glomerular Filt Rate 59 ml/min
[2023-08-03 13:31] LABS: Alanine Aminotransferase* 28 U/L (4-35); Alkaline Phosphatase* 46 U/L (40-150); Anion Gap 4 mEq/L (7-15); Aspartate Amino Transferase* 38 U/L (12-35); Blood Urea Nitrogen* 28 mg/dL (7-30); Calcium* 9.2 mg/dL (8.4-10.6); Carbon Dioxide* 31 mmol/L (20-32); Glucose* 88 mg/dL (60-115); Lactate Dehydrogenase* 259 U/L (120-246); Total Protein* 7.3 g/dL (6.0-8.3)
[2023-10-05 14:02] LABS: Basophils Absolute Auto 0.04 K/uL (0.00-0.30); Basophils Percent Auto 0.7 % (0.0-3.0); Eosinophils Absolute Auto 0.25 K/uL (0.00-0.50); Eosinophils Percent Auto 4.1 % (0.0-7.0); Hematocrit 39.6 % (33.0-51.0); Hemoglobin* 12.7 gm/dL (12.0-16.0); Immature Granulocytes Abs Auto 0.01 K/uL (0.00-0.30); Immature Granulocytes Pct Auto 0.2 %; Lymphocytes Absolute Auto 1.54 K/uL (0.90-2.90); Lymphocytes Percent Auto 25.2 % (20-44); Mean Corpuscular HGB Conc 32 gm/dL (32-36); Mean Corpuscular Hemoglobin 36 pg (26-34); Mean Corpuscular Volume 113 fL (80-100); Monocytes Percent Auto 11.1 % (0.0-11.0); Neutrophils Absolute Auto 3.59 K/uL (1.7-7.0); Neutrophils Percent Auto 58.7 % (42.0-72.0); Platelet Count* 346 K/uL (140-440); RDW Coefficient of Variation % 13.2 % (11.5-15.5); White Blood Count* 6.11 K/uL (4.50-11.00)
[2023-10-05 14:11] LABS: Slide Review Reflex No
== END 2023-12-04 23:59 | disposition home or self-care (01) ==
LOC: CCIC 14:00
PROVIDERS: PCP Family Medicine; Referring Provider Family Medicine; Visit Provider Internal Medicine Hematology & Oncology
DX: D47.3 Essential (hemorrhagic) thrombocythemia (principal)
CPT/HCPCS: 36415; 80053; 83615; 85025; 99213; 99214; G0463

== ENCOUNTER 2023-12-19 08:05 | Outpatient (CLI) | payer MEDICARE, BC, SELFPAY ==
--- OUTSIDE RECORDS SUMMARY | 2023-12-20 15:55 | XMS_ITS | Clinical Summary ---
[facility] Address [address] [place] [address] Care Team Providers Care Cut Off Tender Glass Name Role Phone Unavailable Primary Care Provider Unavailabl e Source Comments You are receiving this document as you are listed as the primary care provider,follow-up provider, or the patient has been referred to you for consultation.This is in compliance with the Medicare andMedicaid EHR Incentive Program,which states Providers who transition their patient to another setting of careor provider of care or refers their patient to another provider of care shouldprovide summary care record for each transition of care or referral. [facility] Allergies Active Allergy Reactions Criticality Noted Date Comments Sulfacetamide Rash 09/01/2021 Medications Medication Sig Dispensed Refills Start Date End Date Status aspirin EC 81 MG enteric coated tablet Daily Active atorvastatin (LIPITOR) 10 MG tablet 02/22/2021 Active cholecalciferol (VITAMIN D3) 50 MCG (1999 UT) capsule Daily Active estradiol (VIVELLEDOT) 0.025 MG/24HR semiweekly patch 02/23/2021 Active Famotidine-Ca Carb-Mag Hydrox 10-800-165 MG Daily Acti ve hydroxyurea (HYDREA) 500 MG capsule 02/23/2021 Active levothyroxine (SYNTHROID) 50 MCG tablet 02/11/2021 Active Niacinamide 500 MG tablet Active Calcium Carb-Cholecalciferol (CALCIUM 1000 + D) 1000-800 MG-UNIT TABS Twice A Day Active Multiple Vitamin (RA ONE DAILY MULTI-VITAMIN) Daily Acti ve Social History Tobacco Use Types Packs/Day Years Used Date Smoking Tobacco: Never Smokeless Tobacco: Never Alcohol Use Standard Drinks/Week Comments Not Currently 0 (1 standard drink = 0.6 oz pur e alcohol) Sex and Gender Information Value Date Recorded Sex Assigned at Not on file Gender Identity Not on file Sexual Orientation Not on file Last Filed Vital Signs Vital Sign Reading Time Taken Comments Blood Pressure - - Pulse 69 03/26/2022 2:46 PM LEAD PASTOR Temperature - - Respiratory Rate - - Oxygen Saturation 97% 03/26/2022 2:46 PM LEAD PASTOR Inhaled Oxygen Concentration - - Weight 62.6 kg (138 lb) 03/26/2022 2:46 PM LEAD PASTOR Height 160 cm (5' 3) 03/26/2022 2:46 PM LEAD PASTOR Body Mass Index 24.45 03/26/2022 2:46 PM LEAD PASTOR Plan of Treatment Health Maintenance Due Date Last Done Comments Hep C Screening (Preventive Services) 1945 Medicare Annual Wellness Visit 1945 Dexa 12/14/2012 RSV (1 - 1-dose 75+ series) 12/14/2022 COVID-19 Vaccine ( season) 2023 11/20/2021, 05/29/2021, 05/29/2021, Additional history exists Influenza (#1) 2023 11/21/2021, 10/30, 11/10/2018, Additional history exists DTaP/Tdap/Td (5 - Tdap) 09/05/2029 09/06/19 20, 10/08/2010, 10/08/2010, Additional history exists Pneumococcal 65+ Yrs Completed 10/22/2014, 02/04/2014, 12/21/2012 Zoster/Shingles Completed 04/27/2019, 12/30, 03/23/2012 HepA Aged Out No longer eligi ble based on patient's age to complete this topic HepB Aged Out No longer eligi ble based on patient's age to complete this topic Hib Aged Out No longer eligi ble based on patient's age to complete this topic IPV (Polio) Aged Out No longer eligi ble based on patient's age to complete this topic RSV Aged Out No longer eligi ble based on patient's age to complete this topic MCV4 Aged Out No longer eligi ble based on patient's age to complete this topic
== END 2023-12-19 08:06 | disposition home or self-care (01) ==
LOC: NFLDREF 12-20 15:54
PROVIDERS: PCP Family Medicine; Referring Provider Family Medicine; Visit Provider Family Medicine
DX: Z00.00 Encounter for general adult medical examination without abnormal findings (principal); E03.9 Hypothyroidism, unspecified; E78.5 Hyperlipidemia, unspecified; D47.3 Essential (hemorrhagic) thrombocythemia; M81.0 Age-related osteoporosis without current pathological fracture; M85.89 Other specified disorders of bone density and structure, multiple sites
CPT/HCPCS: 80061; 82306; 84439; 84443

== ENCOUNTER 2024-02-24 15:05 | Outpatient (CLI) | payer MEDICARE, BC, SELFPAY ==
--- NOTE | 2024-02-24 15:20 | CRLHL7_ITS ---
For Patients: As a result of the Century Cures Act, medical imaging exams and procedure reports are released immediately into your electronic medical record. You may view this report before your referring provider. If you have questions, please contact your health care provider. BILATERAL SCREENING MAMMOGRAM WITH COMPUTER-AIDED DETECTION AND TOMOSYNTHESIS TECHNIQUE: CC and MLO views were obtained. These mammographic images have been obtained using full-field digital technique. These mammographic images were interpreted with the benefit of computer-aided detection. Breast Tomosynthesis was used in this interpretation. COMPARISON FILM: 01/28/23, 01/19/22, 12/22/20. FINDINGS: There are scattered areas of fibroglandular density. IMPRESSION: There is no radiographic evidence for malignancy. ASSESSMENT: BI-RADS Category 1: Negative RECOMMENDATION: Routine screening mammogram in 1 year. A lay language report of this examination will be provided to the patient. Usman Bates M.D. Diagnostic Radiologist [email or web address] SP/Dictated by: Usman Bates MD @ 02/27/2024 9:26:00 AM (Electronically Signed)
== END 2024-02-24 15:06 | disposition home or self-care (01) ==
LOC: MAMMO 15:06
PROVIDERS: PCP Family Medicine; Visit Provider Family Medicine
DX: Z12.31 Encounter for screening mammogram for malignant neoplasm of breast (principal)
CPT/HCPCS: 77063; 77067

== ENCOUNTER 2024-03-22 08:00 | Outpatient (CLI) | payer MEDICARE, BC, SELFPAY | END 2024-03-22 08:01 | disposition home or self-care (01) | LOC: NFLDREF 03-30 07:43 | PROVIDERS: PCP Family Medicine; Referring Provider Family Medicine; Visit Provider Family Medicine | DX: E03.9 Hypothyroidism, unspecified (principal) | CPT/HCPCS: 84439; 84443 ==

== ENCOUNTER 2024-04-10 14:00 | Outpatient (RCR) | payer MEDICARE, BC, SELFPAY ==
[2023-12-07 13:10] LABS: Basophils Absolute Auto 0.04 K/uL (0.00-0.30); Basophils Percent Auto 0.6 % (0.0-3.0); Eosinophils Absolute Auto 0.24 K/uL (0.00-0.50); Eosinophils Percent Auto 3.5 % (0.0-7.0); Hematocrit 39.4 % (33.0-51.0); Hemoglobin* 12.8 gm/dL (12.0-16.0); Immature Granulocytes Abs Auto 0.01 K/uL (0.00-0.30); Immature Granulocytes Pct Auto 0.1 %; Lymphocytes Absolute Auto 1.51 K/uL (0.90-2.90); Lymphocytes Percent Auto 21.9 % (20-44); Mean Corpuscular HGB Conc 33 gm/dL (32-36); Mean Corpuscular Hemoglobin 37 pg (26-34); Mean Corpuscular Volume 115 fL (80-100); Monocytes Percent Auto 11.3 % (0.0-11.0); Neutrophils Percent Auto 62.6 % (42.0-72.0); Platelet Count* 326 K/uL (140-440); RDW Coefficient of Variation % 13.3 % (11.5-15.5); Red Blood Count 3.44 m/uL (4.00-5.20); White Blood Count* 6.88 K/uL (4.50-11.00)
[2023-12-07 13:14] LABS: Slide Review Reflex No
[2023-12-07 13:36] LABS: Albumin* 4.4 g/dL (3.3-5.0); Chloride* 100 mmol/L (96-114); Sodium* 135 mmol/L (135-149)
[2023-12-07 13:38] LABS: Estimated Glomerular Filt Rate 59 ml/min
[2023-12-07 13:39] LABS: Alanine Aminotransferase* 27 U/L (4-35); Alkaline Phosphatase* 39 U/L (40-150); Anion Gap 4 mEq/L (7-15); Aspartate Amino Transferase* 36 U/L (12-35); Bilirubin Total* 0.5 mg/dL (0.1-1.5); Blood Urea Nitrogen* 25 mg/dL (7-30); Calcium* 9.1 mg/dL (8.4-10.6); Carbon Dioxide* 31 mmol/L (20-32); Glucose* 89 mg/dL (60-115); Lactate Dehydrogenase* 263 U/L (120-246); Total Protein* 7.1 g/dL (6.0-8.3)
[2024-02-07 14:22] LABS: Basophils Absolute Auto 0.04 K/uL (0.00-0.30); Basophils Percent Auto 0.6 % (0.0-3.0); Eosinophils Absolute Auto 0.28 K/uL (0.00-0.50); Eosinophils Percent Auto 4.2 % (0.0-7.0); Hematocrit 38.7 % (33.0-51.0); Hemoglobin* 12.7 gm/dL (12.0-16.0); Immature Granulocytes Abs Auto 0.01 K/uL (0.00-0.30); Immature Granulocytes Pct Auto 0.1 %; Lymphocytes Absolute Auto 1.36 K/uL (0.90-2.90); Lymphocytes Percent Auto 20.2 % (20-44); Mean Corpuscular HGB Conc 33 gm/dL (32-36); Mean Corpuscular Hemoglobin 38 pg (26-34); Mean Corpuscular Volume 115 fL (80-100); Monocytes Percent Auto 9.8 % (0.0-11.0); Neutrophils Absolute Auto 4.37 K/uL (1.7-7.0); Neutrophils Percent Auto 65.1 % (42.0-72.0); Platelet Count* 374 K/uL (140-440); RDW Coefficient of Variation % 12.8 % (11.5-15.5); Red Blood Count 3.37 m/uL (4.00-5.20); White Blood Count* 6.72 K/uL (4.50-11.00)
[2024-02-07 14:40] LABS: Slide Review Reflex No
--- NOTE | 2024-02-07 15:12 | ONC.NURNOTE ---
labs called to patient as stable, taking hydrea 500mg 4 days a week and 1000 mg 3 days a week next lab appt reviewed for Mar
[2024-04-10 14:46] LABS: Basophils Absolute Auto 0.05 K/uL (0.00-0.30); Basophils Percent Auto 0.8 % (0.0-3.0); Eosinophils Absolute Auto 0.25 K/uL (0.00-0.50); Eosinophils Percent Auto 3.8 % (0.0-7.0); Hematocrit 39.8 % (33.0-51.0); Hemoglobin* 13.1 gm/dL (12.0-16.0); Immature Granulocytes Abs Auto 0.01 K/uL (0.00-0.30); Immature Granulocytes Pct Auto 0.2 %; Lymphocytes Percent Auto 19.5 % (20-44); Mean Corpuscular HGB Conc 33 gm/dL (32-36); Mean Corpuscular Hemoglobin 37 pg (26-34); Mean Corpuscular Volume 114 fL (80-100); Neutrophils Percent Auto 66.7 % (42.0-72.0); Platelet Count* 347 K/uL (140-440); White Blood Count* 6.58 K/uL (4.50-11.00)
[2024-04-10 14:48] LABS: Slide Review Reflex No
--- NOTE | 2024-04-10 16:27 | ONC.NURNOTE ---
CBC results called to patient as stable next appts reviewed Michaela reports no new concerns or changes with hydrea
== END 2024-06-04 23:59 | disposition home or self-care (01) ==
LOC: CCIC 14:00
PROVIDERS: PCP Family Medicine; Referring Provider Family Medicine; Visit Provider Internal Medicine Hematology & Oncology
DX: D47.3 Essential (hemorrhagic) thrombocythemia (principal)
CPT/HCPCS: 36415; 80053; 83615; 85025; 99214; G0463

== ENCOUNTER 2024-05-24 09:15 | Outpatient (CLI) | payer MEDICARE, BC, SELFPAY | END 2024-05-24 09:16 | disposition home or self-care (01) | LOC: NFLDREF 05-25 03:21 | PROVIDERS: PCP Family Medicine; Referring Provider Family Medicine; Visit Provider Family Medicine | DX: E03.9 Hypothyroidism, unspecified (principal) | CPT/HCPCS: 84439; 84443 ==

== ENCOUNTER 2024-09-12 09:53 | Outpatient (RCR) | payer MEDICARE, BC, SELFPAY ==
[2024-06-12 14:10] LABS: Hematocrit* 38.8 % (33.0-51.0); Hemoglobin* 12.8 gm/dL (12.0-16.0); Immature Granulocytes Abs Auto 0.01 K/uL (0.00-0.30); Immature Granulocytes Pct Auto 0.1 %; Lymphocytes Absolute Auto 1.40 K/uL (0.90-2.90); Mean Corpuscular HGB Conc 33 gm/dL (32-36); Mean Corpuscular Hemoglobin 38 pg (26-34); Mean Corpuscular Volume 115 fL (80-100); RDW Coefficient of Variation % 12.9 % (11.5-15.5); Red Blood Count* 3.37 m/uL (4.00-5.20); White Blood Count* 7.59 K/uL (4.50-11.00)
[2024-06-12 14:12] LABS: Slide Review Reflex No
[2024-06-12 14:45] LABS: Albumin* 4.2 g/dL (3.3-5.0); Chloride* 99 mmol/L (96-114); Potassium* 4.1 mmol/L (3.6-5.1); Sodium* 137 mmol/L (135-149)
[2024-06-12 14:47] LABS: Alanine Aminotransferase* 27 U/L (4-35); Aspartate Amino Transferase* 35 U/L (12-35); Blood Urea Nitrogen* 28 mg/dL (7-30); Creatinine* 1.0 mg/dL (0.5-1.5); Estimated Glomerular Filt Rate 58 ml/min
[2024-06-12 14:48] LABS: Alkaline Phosphatase* 48 U/L (40-150); Anion Gap 8 mEq/L (7-15); Bilirubin Total* 0.4 mg/dL (0.1-1.5); Calcium* 9.3 mg/dL (8.4-10.6); Carbon Dioxide* 30 mmol/L (20-32); Glucose* 102 mg/dL (60-115); Total Protein* 7.1 g/dL (6.0-8.3)
--- NOTE | 2024-06-19 10:35 | ONC.NURNOTE ---
Michaela phoned to report ongoing discomfort at antecubital site from lab draw last week. She denies any redness at the site, no swelling, she does not palpate a lump. There is tenderness when bending her arm.It is not warm to the touch. Recommended that she try a warm pack 2-3 times a day for the next 2-3 days. Watch for worsening symptoms or pain. Call the [facility] with ongoing concerns and we will have her come in to visually evaluate the lab draw site.
[2024-09-12 10:06] LABS: Hematocrit* 41.2 % (33.0-51.0); Hemoglobin* 13.7 gm/dL (12.0-16.0); Immature Granulocytes Abs Auto 0.05 K/uL (0.00-0.30); Immature Granulocytes Pct Auto 0.8 %; Mean Corpuscular HGB Conc 33 gm/dL (32-36); Mean Corpuscular Hemoglobin 37 pg (26-34); Mean Corpuscular Volume 111 fL (80-100); RDW Coefficient of Variation % 12.9 % (11.5-15.5); Red Blood Count* 3.70 m/uL (4.00-5.20); White Blood Count* 5.92 K/uL (4.50-11.00)
[2024-09-12 10:29] LABS: Lymphocytes Absolute Auto 1.20 K/uL (0.90-2.90); Slide Review Reflex No
== END 2024-12-09 23:59 | disposition home or self-care (01) ==
LOC: CCIC 09:53
PROVIDERS: PCP Family Medicine; Referring Provider Family Medicine; Visit Provider Internal Medicine Hematology & Oncology
DX: D47.3 Essential (hemorrhagic) thrombocythemia (principal)
CPT/HCPCS: 36415; 80053; 83615; 85025; 99213; 99214; G0463

== ENCOUNTER 2024-10-11 14:45 | Outpatient (RCR) | payer MEDICARE, BC, SELFPAY ==
--- NOTE | 2024-04-23 10:03 | PT.OPEX ---
PT [facility] Outpatient Eval PT [facility] Outpatient Eval Start: 04/23/24 07:30 Freq: Status: Active Protocol: Document 04/23/24 07:32 CRP (Rec: 04/23/24 09:59 CRP [id number]) E-signed By Dillan Guzman PT Physical Therapy Outpatient Evaluation Insurance Information Recert Due Date 07/22/24 Insurance Name Medicare B Medical Diagnosis Thoracic back pain Referring MD Dr Galicia Subjective Subjective Fell 2019 and broke her wrist and injured her back. Had xray that showed compression fx. Was told her compression fx was T8. Has had ongoing pain since this injury. No pain in the morning. Pain will increase as the day progresses. Any activity that causes forward position of the arms can cause pain. Lifting increases pain. Pain is located center of the back at about T8. No low back pain. No related LE pain. No numbness or tingling. Pt would like to learn some exer to help. Had PT in the past that did seem to help. Sleep is fine. By the end of the day she needs to sit in her recliner and isn't very active. Pain Comments 06/07 Current Work Status Retired Objective Other/Pertinent Objective HEP review: Lying supine over towel roll going up down spine - does scap sets. SL thoracic rotation bilat. Bilat shoulder extension with orange TB. BIlat shoulder horiz abd with orange TB. Trunk ROM: Flex WNL, Ext WNL, bilat SB min dec, R rot WNL, L rot min dec with discomfort. Bilat UE WNL bilat Cervical spine ROM shows mild/ mod rotation and SB restriction without pain Segmental testing: mod restriction T5-T10 CPA grade 3 - Assessment Assessment/Impression Pt presents to the clinic with long standing issues of thoracic back pain that have been present since compression fx in 2019. Pt demonstrates mid thoracic spine segmental hypomobility, decreased trunk ROM and postural weakness. All of the above findings may be contributing to ongoing mechanical pain. Skilled PT is necessary to incorporate ther ex, nm megan, manual therapy and pt education to decrease pain and improve functional mobility. 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 Pt will be independent with HEP in 8 weeks. 2. Pt will complete engine monitor without c.o in 10 weeks . 3. Pt will care for grandkids with 75% decrease in pain in 12 weeks. Coordination/Communication With Referral Source Treatment Plan/Direct Interventions Manual Therapy,Neuromuscular Re-ed,Self-Care/Home Management,Therapeutic Activities,Therapeutic Exercises Frequency/Duration 1-2x/wk for 12 weeks Patient Will Be Discharged From Therapy Completion of LTG(s),Skills Plateau,Independent w/HEP, Independently Progressing Evaluation Billing Untimed Code Treatment Minutes 40 Complexity Moderate Certification Information Initial Certification Date 04/23/24 Ending Certification Date 07/22/24 Provider Signature Required Yes Provider Signature Shows Agreement With POC & Medical Necessity Physician NPI Number Write NPI# Here Physician Comment/Change : Physician Signature & Date Requested Please Sign/Date Here
== END 2025-02-08 23:59 | disposition home or self-care (01) ==
PROVIDERS: PCP Family Medicine; Visit Provider Family Medicine
DX: M54.6 Pain in thoracic spine (principal); Z51.89 Encounter for other specified aftercare
CPT/HCPCS: 97110; 97140; 97162; 97530

== ENCOUNTER 2024-12-18 12:50 | Outpatient (CLI) | payer MEDICARE, BC, SELFPAY | END 2024-12-18 12:51 | disposition home or self-care (01) | LOC: NFLDUCREF 12:50 | PROVIDERS: PCP Family Medicine; Visit Provider Physician Assistant | DX: L08.9 Local infection of the skin and subcutaneous tissue, unspecified (principal); T14.8XXA Other injury of unspecified body region, initial encounter | CPT/HCPCS: 87070 ==

== ENCOUNTER 2025-02-25 13:45 | Outpatient (CLI) | payer MEDICARE, BC, SELFPAY ==
--- NOTE | 2025-02-25 14:00 | CRLHL7_ITS ---
For Patients: As a result of the Century Cures Act, medical imaging exams and procedure reports are released immediately into your electronic medical record. You may view this report before your referring provider. If you have questions, please contact your health care provider. INDICATION: BILATERAL SCREENING MAMMOGRAM, ASYMPTOMATIC 79 Y/O FEMALE COMPARISON: 02/24/2024, 01/28/2023, 01/19/2022 TECHNIQUE: Digital mammogram in CC and MLO projections including computer-aided detection (CAD) and tomosynthesis. BREAST COMPOSITION: There are scattered areas of fibroglandular density. FINDINGS: No suspicious findings. ASSESSMENT: BI-RADS 1 Negative RECOMMENDATION: Annual screening mammogram. A lay language report of this examination will be provided to the patient. Dictated by: Usman Bates MD @ 02/26/2025 08:31:12 (Electronically Signed)
== END 2025-02-25 13:46 | disposition home or self-care (01) ==
LOC: MAMMO 13:47
PROVIDERS: PCP Family Medicine; Visit Provider Family Medicine
DX: Z12.31 Encounter for screening mammogram for malignant neoplasm of breast (principal)
CPT/HCPCS: 77063; 77067